=== PATIENT | female | born 1950 | race Caucasian/White ===

== ENCOUNTER → 2023-08-06 13:28 | Outpatient (REF) | payer OTHER, SELFPAY | LOC: RAD 13:28 | PROVIDERS: ATTENDING PHYSICIAN Specialist; FAMILY PHYSICIAN Family Medicine | DX: N18.32 Chronic kidney disease, stage 3b (principal) | CPT/HCPCS: 76775 ==

== ENCOUNTER → 2023-08-21 16:30 | Outpatient (REF) | payer OTHER, SELFPAY | LOC: RAD 16:30 | PROVIDERS: ATTENDING PHYSICIAN Nurse Practitioner Family | DX: Z87.891 Personal history of nicotine dependence (principal) | CPT/HCPCS: 71271 ==

== ENCOUNTER → 2023-10-03 06:41 | Day surgery (SDC) | payer OTHER, SELFPAY | LOC: GI 06:41 | PROVIDERS: ATTENDING PHYSICIAN Internal Medicine Gastroenterology; FAMILY PHYSICIAN Family Medicine | DX: D12.2 Benign neoplasm of ascending colon (principal); D12.4 Benign neoplasm of descending colon; K63.5 Polyp of colon; K57.30 Diverticulosis of large intestine without perforation or abscess without bleeding; K62.1 Rectal polyp; K64.8 Other hemorrhoids; K64.4 Residual hemorrhoidal skin tags; R19.5 Other fecal abnormalities | CPT/HCPCS: 45385; 45380; 88305 ==

== ENCOUNTER 2024-07-31 17:23 | Inpatient (IN) | payer OTHER, SELFPAY ==
[2024-07-31] VITALS (21 sets, daily range): BP systolic 57–117; BP diastolic 37–64; BMI 23.9
[2024-07-31 13:54] LABS: Glucose - Point of Care 112 mg/dl (70-99)
[2024-07-31 14:24] LABS: % Eosinophils 0.3 % (0-6); % Immature Granulocytes 2.1 % (0-0.5); % Lymphocytes 10.2 % (20.5-51.1); % Monocytes 8.1 % (1.7-9.3); % Neutrophils 79.3 % (42.2-75.2); Absolute Immature Granulocytes 0.1 10^3/uL (0-0.05); Absolute Lymphocytes 0.4 10^3/uL (1.2-3.4); Absolute Monocytes 0.3 10^3/uL (0.1-0.6); Absolute Neutrophils 3.1 10^3/uL (1.4-6.5); Hematocrit 17.3 % (37.0-47.0); Hemoglobin 6.1 g/dL (12.0-16.0); Mean Corp Hgb Conc. 35.3 g/dL (33.0-37.0); Mean Corpuscular Hgb 29.9 pg (27.0-31.0); Mean Corpuscular Volume 84.8 fL (81.0-99.0); Nucleated Red Blood Cells % 0.8 %; Red Blood Cell Count 2.04 10^6/uL (4.20-5.40); Red Cell Dist. Width 12.9 % (11.5-14.5); White Blood Cell Count 3.8 10^3/uL (4.8-10.8)
[2024-07-31 14:27] LABS: INR 1.08; PT 14.5 Sec (11.4-14.6)
--- NOTE | 2024-07-31 14:30 | EDRN ---
Patient is noted to be covered in bruises. Patient has bilateral lower arm bruising that is circumferential. Patient has skin tears all over as well. Patient not speaking at this time so unsure of what caused bruises. Patient also has some various
bruising on her back. There are 2 circular sores, one on each buttock.
Patient has some redness to her buttock as when she arrived she was covered in stool and urine.
Patient has various scratch benavides all over her too.
[2024-07-31 14:31] LABS: Urine Albumin 4+ (Neg - Trace); Urine Bilirubin Negative (Negative); Urine Character Slightly Cloudy (Clear); Urine Color Amber; Urine Glucose Negative (Negative); Urine Ketone Negative (Negative); Urine Leukocyte 2+ (Negative); Urine Nitrite Positive (Negative); Urine Occult Blood 4+ (Negative); Urine Urobilinogen 1+ (Neg - 1+)
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
[2024-07-31 14:32] LABS: Mean Platelet Volume 10.4 fL (7.4-10.4); Platelet Count 70 10^3/uL (130-400)
[2024-07-31 14:38] LABS: COVID-19 Antigen Negative (Negative)
[2024-07-31 14:39] LABS: Lactic Acid 1.2 mmol/L (0.7-2.0)
[2024-07-31 14:42] LABS: ALT (SGPT) 25 U/L (0-35); AST (SGOT) 72 U/L (14-36); Albumin 3.6 g/dl (3.5-5.0); Alkaline Phosphatase 68 U/L (38-126); Blood Urea Nitrogen 87 mg/dl (7-17); Carbon Dioxide 9 mmol/L (22-30); Chloride 85 mmol/L (98-107); Creatine Phosphokinase 744 U/L (30-135); Glucose 141 mg/dl (70-99); Potassium 4.8 mmol/L (3.5-5.1); Sodium 113 mmol/L (135-145); Total Bilirubin 0.5 mg/dl (0.2-1.3); Total Protein 6.2 g/dl (6.3-8.2); eGFR 8.09
[2024-07-31 14:50] LABS: Urine Red Blood Cell 90-100 /HPF (0-2); Urine Squamous Cell 26-30 /LPF (Few); Urine White Cell 80-90 /HPF (0-5)
[2024-07-31 14:51] LABS: Urine Amorphous Seen; Urine Bacteria Many (Negative)
[2024-07-31] MEDS: MAXIPIME 2000 MG IV (15:24)
--- NOTE | 2024-07-31 15:48 | HPS.HSE ---
Family Physician
-
Family Physician: Rubén Vera MD
Chief Complaint
-
adult failure to thrive
History of Present Illness
Patient is a 74-year-old female with past medical history significant for HFpEF, COPD, CKD IV, chronic anemia and depression who presented to [facility] ED for evaluation of adult failure to thrive. Patient arrived to ED via EMS s/p call
from patient . It was reported that patient has not gotten out of bed in months and over past 48-hours she has not been communicating. He reported that 1 year ago patient diagnoses with Stage IV CKD and refused HD and has been declining ever
since. He reports that she is mainly in bed on the main level, where as he sleeps upstairs. She is unable to ambulate up the steps r/t weakness and has been down stairs ever since. He states she has had decreased PO intake and has been
noncommunicative for the past 2 days. He goes in room to leave food and medications. He mentioned he noticed dinner he gave her last night is still sitting on patient bed.
Medical History
Past Medical History
Past Medical History: Reports Other
Additional Past Medical History:
HFpEF
COPD
CKD IV
chronic anemia
depression
Past Surgical History: Reports Other
Additional Past Surgical History:
Sinus surgery
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
Social History
Tobacco: Former Smoker (50 pack year history )
Living: With Family
Family History
Family History: Unable to Obtain
Allergies / Home Medications
Allergies reflects when Allergies were last updated in [employer].
Home Medications with original date entered in [employer]
Allergy/Medication List:
Allergies
Allergy/AdvReac Type Severity Reaction Status Date / Time
prednisone Allergy Unknown Verified 07/31/24 13:35
Home Medications
albuterol sulfate 90 mcg/actuation aerosol inhaler (Ventolin HFA) 2 puff inhalation R Q4HPRN PRN sob 11/24/17
escitalopram oxalate 10 mg tablet (Lexapro) 10 mg PO DAILY 07/31/24
sennosides 8.6 mg tablet (senna) 8.6 mg PO HSPRN PRN constipation 07/31/24
sodium bicarbonate 650 mg tablet 650 mg PO DAILY 07/31/24
trazodone 100 mg tablet 100 mg PO HS 07/31/24
Review of Systems
-
Unable to obtain full review of systems at this time due to: Patient Non-verbal
Physical Exam
Vital Signs
Vital Signs
Temp Pulse Resp BP Pulse Ox
91.8 F L 63 24 101/57 96
07/31/24 13:35 07/31/24 15:00 07/31/24 15:00 07/31/24 14:21 07/31/24 15:00
Physical Exam
General: Well Developed and Poor Appetite
HEENT: NormoCephalic, Atraumatic, Nose Appears Normal and Ears Appear Normal
Respiratory: Rhonchi and Non Labored Respirations
Cardiac: S1/S2 and Regular Rhythm; No Murmur, Rub or Gallop
GI: Soft, Non Tender, Non Distended and Normal Bowel Sounds; No Organomegaly
Rectal: Deferred by Provider
Genito-urinary: Deferred by me
Musculoskeletal: No Clubbing, No Cyanosis, Edema, Left Lower Extremity and Edema, Right Lower Extremity
Skin: IV/Catheter Site and Other (bruising noted to BLUE, scattered on back and shoulders ); No Rash
Neuro: Other (unable to assess, patient withdrawn from assessment attempts )
Laboratory Results
-
07/31/24 13:55
07/31/24 13:55
Laboratory Results
PT 14.5 Sec (11.4-14.6) 07/31/24 13:55
INR 1.08 07/31/24 13:55
Lactic Acid 1.2 mmol/L (0.7-2.0) 07/31/24 13:55
Total Bilirubin 0.5 mg/dl (0.2-1.3) 07/31/24 13:55
AST 72 U/L (14-36) H 07/31/24 13:55
ALT 25 U/L (0-35) 07/31/24 13:55
Alkaline Phosphatase 68 U/L (38-126) 07/31/24 13:55
Data Reviewed
-
Medical Tests (Nuc Med, Echo, EKG etc): Report Reviewed by me (EKG: ACCELERATED JUNCTIONAL RHYTHM VERSUS SINUS RHYTHM WITH POOR BASELINE)
Lab Data: Labs Reviewed by me (hgb 6.1, hct 17.3, plt 70, Na+ 113, HCO3 9, BUN 87, Creat 5.3, CK 744)
Impression/Plan
-
IMPRESSION/PLAN:
#severe acute kidney injury
#CKD IV
patient known to Dr. Boss and has adamantly refused HD
BUN 87, creat 5.3
- Admit to ICU
- Consult Nephrology
- bicarb gtt
- BMP q4
#metabolic acidosis
HCO3 9
- bicarb gtt
- q4 BMPs
#acute hyponatremia
Na+ 113
- Consult nephrology
- q4 BMP
- check urine sodium and creatine
#sepsis 2/2 urinary tract infection
UA: indicative of UTI
Urine Cx: pending
- IV ceftriaxone
- supportive care
#pancytopenia
#chronic anemia
hgb 6.1, hct 17.3, plt 70
blood consent scanned into chart
- transfuse 1 unit PRBCs
- monitor H/H
- check B12, folate and iron studies
- Consult heme/Onc
#hypothermia
- ye hugger
#HFpEF
ECHO (05/26/2021): 1. Normal left ventricular size and function, ejection fraction 60-65%
2. Trace mitral vegetation with normal left atrium
3. Normal aortic valve
4. Normal right heart with pulmonary artery systolic pressure 35 mmHg
- daily weights
#COPD
- continue PRN albuterol HFA
#depression
- continue escitalopram
Code status: DNR
DVT prophylaxis: SCDs
--- NOTE | 2024-07-31 16:10 | W.CON.NEPH ---
Consultation
-
Date/Time Consultation Requested: 07/31/24 330 pm
Date/Time Consultation Performed: 07/31/24 330pm
Requesting Provider: Dr. Sena
Performing Provider: Dr. Robins
Reason for Consultation: YUNG/Hyponatremia/Gapped metabollic acidosis
Medical History
-
Chief Complaint: YUNG/Hyponatremia/Gapped Metabolic Acidosis
History of Present Illness:
The patient is a 74-year-old female with a past medical history of metabolic acidosis maintained on sodium bicarbonate. She has a history of chronic kidney disease stage IV as noted by a creatinine of 3.4 in July 28, 2024. She had been seen by our
practice in 2017 in the hospital for an acute kidney injury in the setting of sepsis. She is followed by Dr. Boss of our nephrology practice and was last seen by him in May. During that last visit the patient had once again adamantly declared
that she would never except dialysis and no preparations have been made . I also know as per review of Dr. Boss's note that at that time her salt tablets and Lasix was discontinued . She is now maintained chronically on Lexapro for depression.She
presented to the emergency department for concern of failure to thrive. Medics called by patient's who notes that patient has not been getting out of bed for several months. On arrival to the hospital, patient is not speaking, malodorous,
covered in urine and feces. Patient unable to comply with any questioning. On 's arrival, he notes that she has been laying in the same bed for several months and he tries to clean her and leaves her medications on the bed for her. In
the past 2 days she has had decreased communication. Patient arrives with some scattered bruising to her back, and denies any recent fall or trauma. On arrival to the hospital she was profoundly hyponatremic with a serum sodium of 113 with
an associated metabolic acidosis with serum bicarbonate level of 9 and an acute renal failure with a creatinine of 5.3 with BUN of 87. Nephrology was then asked to see this critically ill patient
Past Medical History
CKD 4 (3.3 06/21)
Chronic metabolic acidosis
Depression
COPD
Prior history of congestive heart failure with preserved EF
Left knee replacement
History of Hyponatremia
Social History
Tobacco: Non-Smoker
Alcohol: None
Personal:
Living: With Family
Family History
Family History: Not Pertinent
Allergies / Home Medications
Allergy/AdvReac Type Severity Reaction Status Date / Time
prednisone Allergy Unknown Verified 07/31/24 13:35
�Medication �Instructions �Recorded �Confirmed �Type
albuterol sulfate 90 mcg/actuation 2 puff inhalation R Q4HPRN PRN sob 11/24/17 07/31/24 History
aerosol inhaler (Ventolin HFA)
escitalopram oxalate 10 mg tablet 10 mg PO DAILY 07/31/24 07/31/24 History
(Lexapro)
sennosides 8.6 mg tablet (senna) 8.6 mg PO HSPRN PRN constipation 07/31/24 07/31/24 History
sodium bicarbonate 650 mg tablet 650 mg PO DAILY 07/31/24 07/31/24 History
trazodone 100 mg tablet 100 mg PO HS 07/31/24 07/31/24 History
Review of Systems
-
Unable to obtain full review of systems at this time due to: Acuity
All other systems: Negative unless noted
Physical Exam
Vital Signs
Vital Signs
Temp Pulse Resp BP Pulse Ox
93.1 F L 63 24 101/57 96
07/31/24 16:04 07/31/24 15:00 07/31/24 15:00 07/31/24 14:21 07/31/24 15:00
Lab Results
07/31/24 13:55
07/31/24 13:55
WBC 3.8 10^3/uL (4.8-10.8) L 07/31/24 13:55
RBC 2.04 10^6/uL (4.20-5.40) L 07/31/24 13:55
Hgb 6.1 g/dL (12.0-16.0) L* 07/31/24 13:55
Hct 17.3 % (37.0-47.0) L* 07/31/24 13:55
Plt Count 70 10^3/uL (130-400) L 07/31/24 13:55
Sodium 113 mmol/L (135-145) L* 07/31/24 13:55
Potassium 4.8 mmol/L (3.5-5.1) 07/31/24 13:55
Chloride 85 mmol/L (98-107) L 07/31/24 13:55
Carbon Dioxide 9 mmol/L (22-30) L* 07/31/24 13:55
BUN 87 mg/dl (7-17) H 07/31/24 13:55
Creatinine 5.3 mg/dL (0.6-1.0) H* 07/31/24 13:55
eGFR 8.09 07/31/24 13:55
Glucose 141 mg/dl (70-99) H 07/31/24 13:55
Calcium 8.0 mg/dl (8.4-10.2) L 07/31/24 13:55
Albumin 3.6 g/dl (3.5-5.0) 07/31/24 13:55
Physical Exam
General: Chronically ill-appearing cachectic withdrawn nonverbal
HEENT: PERRLA EOMI conjunctive pale, anicteric sclera,facial Symmetry, Neck Supple, Neck: Trachea Midline, No JVD and No Thyromegaly, no Bruits
Respiratory: Clear to auscultation bilaterally with normal lung exersion
Cardiac: S1/S2 and Regular Rate/Rhythm
Breast: Deferred by me
Abdomen: Soft, Nontender, Nondistended, decreased Bowel Sounds and No Hepatosplenomegaly
Rectal: Deferred by Provider
Genito-urinary: No Costovertebral Tenderness
Extremities: No Clubbing, No Cyanosis and No Edema
Skin: No Rash or open lesions
Neuro: Unobtainable as patient is uncooperative with exam but appears to move all 4 extremities
Hematologic/Lymphatic: No Cervical Lymphadenopathy, No Submandibular Lymphadenopathy and No Supraclavicular Lymphadenopathy
Psych: Unobtainable as patient is nonverbal and withdrawn
Vascular: plus 1 pedal and radial pulses
Data Reviewed
-
Medical Tests (Nuc Med, Echo etc): Other (EKG report reviewed accelerated junctional rhythm at 69 bpm)
Labs: Labs Reviewed by me (BMP CBC, urinalysis)
Old Records: Reviewed (Reviewed previous creatinine of 1.8 and sodium of 134 from 07/27/21, creatinine 3.11 08/30/23)
Assessment/Plan
-
Impression:
Presents with change of mental status and Failure to thrive
YUNG (5.3)
CKD stage IV (creatinine 3.31 May 2024)
Hyponatremia (113)
Anion gap metabolic acidosis (19)
Anemia
COPD
History of congestive heart failure with preserved EF
Plan:
YUNG:
-Likely a function of volume depletion given failure to thrive in setting of advanced kidney disease stage IV, or progressin of underlying disease
-Would check kidney and bladder ultrasound in am
-place navarro
-hold SSRI, check urine sodium and urine creatinine for fractional excretion of sodium
-Would also check CPK to evaluate for possible rhabdo given bedbound status
-would administer 150 mill equivalents of sodium bicarb per liter of sterile or D5W at 100 cc an hour for profound metabolic acidosis
-We will have to closely monitor patient's serum sodium level as it is precipitously low at 113, however I think the treatment of the acidosis is paramount
-Electrolytes will be obtained every 4 hours to avoid any gross fluctuations of serum sodium level
-Of note the patient has vehemently declined dialysis with proper documentation in the outpatient records therefore dialysis will not be offered and I suggest patient should be DNR and possibly even evaluated for hospice care
-This patient is critically ill with profound hyponatremia metabolic acidosis and acute renal failure in the setting of mental status change
-45 minutes of critical care time spent with patient
[2024-07-31] MEDS: SODIUM CHLORIDE 3% 250 IV (16:32)
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
[2024-07-31] MEDS: SODIUM BICARBONATE 1150 MEQ IV (17:39)
--- NOTE | 2024-07-31 17:40 | EDRN ---
Patient is admitted to the ICU , however no beds available at this time.
Per TT, Dr. Streeter, Hypertonic solution is to be held at this time in favor of IV fluids. However no IV fluids were ordered. Dr. Streeter placed order for 500ML BOLUS. Dr was made aware that patient's BP is 73/40 and declining.
Patient currently has sodium bicarb infusing along with NSS BOLUS.
1 unit PRBC started
Patient continues on ye hugger with core temp of 34
[2024-07-31] MEDS: NSS 500 IV (17:54)
[2024-07-31] MEDS: SODIUM BICARBONATE 50 MEQ IV (18:10)
--- NOTE | 2024-07-31 22:09 | PTCARENOTE ---
Received pt from ED RN. Pt pulled over from the stretcher to our bed. Pt is not speaking, nonverbal, moaning, drowsy, withdrawn. NSR on the monitor. Received pt on RA, O2 sat 88%, placed on 2L NC O2 sat 97%, lungs diminished. Incont of stool. Schaefer
placed in ED, urine is bloody. Various bruising, scratches and skin tears on pt (see wound worklist). BiCarb gtt @ 100 ml/hr. CHG bath and mouth care provided. Safe environment maintained.
[2024-07-31 22:27] LABS: Glucose - Point of Care 72 mg/dl (70-99)
[2024-07-31] MEDS: STERILE WATER FOR INJECTION 10 ML IV (22:37)
[2024-07-31] MEDS: ROCEPHIN 1000 MG IV (22:38)
[2024-08-01] VITALS (20 sets, daily range): BP systolic 95–137; BP diastolic 50–96; BMI 24.2
[2024-08-01 00:38] LABS: INR 1.04; PT 14.1 Sec (11.4-14.6)
[2024-08-01 00:39] LABS: APTT 41.4 Sec (23.4-35.0)
[2024-08-01 00:47] LABS: % Basophils 0.2 % (0-2); % Eosinophils 0.2 % (0-6); % Immature Granulocytes 1.6 % (0-0.5); % Lymphocytes 6.8 % (20.5-51.1); % Monocytes 12.5 % (1.7-9.3); % Neutrophils 78.7 % (42.2-75.2); Absolute Immature Granulocytes 0.1 10^3/uL (0-0.05); Absolute Lymphocytes 0.3 10^3/uL (1.2-3.4); Absolute Monocytes 0.6 10^3/uL (0.1-0.6); Absolute Neutrophils 3.5 10^3/uL (1.4-6.5); Hematocrit 17.3 % (37.0-47.0); Hemoglobin 6.2 g/dL (12.0-16.0); Mean Corp Hgb Conc. 35.8 g/dL (33.0-37.0); Mean Corpuscular Hgb 29.4 pg (27.0-31.0); Nucleated Red Blood Cells % 0.7 %; Platelet Count 61 10^3/uL (130-400); Red Blood Cell Count 2.11 10^6/uL (4.20-5.40); Red Cell Dist. Width 12.4 % (11.5-14.5); White Blood Cell Count 4.4 10^3/uL (4.8-10.8)
[2024-08-01 01:21] LABS: ALT (SGPT) 31 U/L (0-35); AST (SGOT) 120 U/L (14-36); Albumin 3.2 g/dl (3.5-5.0); Alkaline Phosphatase 75 U/L (38-126); Blood Urea Nitrogen 91 mg/dl (7-17); Calcium 7.2 mg/dl (8.4-10.2); Carbon Dioxide 12 mmol/L (22-30); Chloride 86 mmol/L (98-107); Estimated Creatinine Clearance 9 ml/min; Glucose 62 mg/dl (70-99); Magnesium 1.8 mg/dl (1.6-2.3); Phosphorus 5.8 mg/dl (2.5-4.5); Potassium 4.8 mmol/L (3.5-5.1); Sodium 115 mmol/L (135-145); Total Bilirubin 0.8 mg/dl (0.2-1.3); Total Protein 5.6 g/dl (6.3-8.2); eGFR 8.09
--- NOTE | 2024-08-01 01:23 | PTCARENOTE ---
Systems reviewed. ICU JANITORIAL SUPERVISOR Ambrose notified for hgb 6.2, 1 unit PRBCs ordered.
--- NOTE | 2024-08-01 02:15 | PTCARENOTE ---
ICU SETTER UP Ambrose notified about decreased UO. 1 unit PRBCs hanging, 15 min VS check complete, VSS.
[2024-08-01] MEDS: SODIUM BICARBONATE 1150 MEQ IV (04:42)
--- NOTE | 2024-08-01 04:51 | PTCARENOTE ---
Systems reviewed, no new changes in assessment. 1 unit PRBCs complete. 0400 AM labs done. Safe environment maintained.
[2024-08-01 05:09] LABS: Blood Urea Nitrogen 93 mg/dl (7-17); Calcium 7.3 mg/dl (8.4-10.2); Carbon Dioxide 16 mmol/L (22-30); Chloride 87 mmol/L (98-107); Estimated Creatinine Clearance 9 ml/min; Glucose 78 mg/dl (70-99); Iron 171 ug/dl (37-170); Percent Saturation 96 % (20-50); Potassium 5.1 mmol/L (3.5-5.1); Sodium 117 mmol/L (135-145); Total Iron Binding Capacity 178 ug/dl (265-497); eGFR 8.28
[2024-08-01 06:05] LABS: Folate 14.9 ng/ml (2.76-20); Vitamin B12 > 1000 pg/ml (239-931)
[2024-08-01 07:24] LABS: Hematocrit 19.1 % (37.0-47.0); Hemoglobin 7.1 g/dL (12.0-16.0); Mean Corp Hgb Conc. 37.2 g/dL (33.0-37.0); Mean Corpuscular Volume 80.6 fL (81.0-99.0); Platelet Count 66 10^3/uL (130-400); Red Blood Cell Count 2.37 10^6/uL (4.20-5.40); Red Cell Dist. Width 12.3 % (11.5-14.5); White Blood Cell Count 4.8 10^3/uL (4.8-10.8)
--- NOTE | 2024-08-01 08:30 | PTCARENOTE ---
Rec'd care of patient at 0700. Patient lethargic. Pupils equal and reactive; +3mm. Nonverbal. MAEx4. Follows simple commands. NSR on tele. +1 edema in b/l LE. Palpable pulses. Pulse ox 95-98% on 2L nc. Lung sounds diminished throughout. Harsh, moist
cough present. Non-productive. +BS. No bm. Schaefer in place for critical I/O. Blood tinged. Scattered bruising/scratches throughout body. Foams intact. Calazime applied to MASD. Bicarb gtt infusing through peripheral INT. Repeat BMP sent. Full
assessment and care as charted on worklist.
[2024-08-01 08:34] LABS: Blood Urea Nitrogen 92 mg/dl (7-17); Calcium 7.1 mg/dl (8.4-10.2); Carbon Dioxide 18 mmol/L (22-30); Chloride 85 mmol/L (98-107); Estimated Creatinine Clearance 9 ml/min; Glucose 87 mg/dl (70-99); LDH 281 U/L (120-246); Potassium 4.9 mmol/L (3.5-5.1); Sodium 117 mmol/L (135-145); eGFR 7.74
--- NOTE | 2024-08-01 08:41 | CON.ONC ---
Documented by User: CLEOPATRA Carr 08/01/24 12:52
Impression
Impression
pancytopenia on admission with resolution of leukopenia today. No role for iron repletion with ferritin >100. No B12 or folate deficiency. No evidence of hemolysis based on retic, LDH, and LFTs.
advanced CKD, stage IV
hyponatremia
sepsis secondary to UTI
HFpEF
COPD
hypothermia
Plan
Plan
check heme stool
check fibrinogen
Thrombocytopenia may be consumptive in the setting of infection. Monitor for improvement with treatment of UTI
Component of anemia secondary to AOCKD.
No role for iron repletion with ferritin >100.
transfuse Hgb <7 or as needed for sxs anemia
transfuse platelets <10 or <50 if concern for bleeding
caution antiplatelet, nsaids, anticoagulation for platelet count <50,000
abx for suspcted UTI per primary service
follow up nephrology consult
Patient History
History of Present Illness
74yo F presented with failure to thrive. She was brought in by EMS. Her reported that she has not been out of bed in 'months' and stopped communicating and eating over the past 48 hours which prompted him to call EMS. She has been declining
HD for advanced CKD. Initial evaluation was notable for Temp 91.8F, WBC 3.8, ANC 3100, Hgb 6.1, Hct 17.3, platelet count 70,000, PT 14.5, INR 1.08, PTT 41.4, Na 113, BUN 87, creatinine 5.3, calcium 8, AST 72 otherwise normal LFTs. UA showed pyuria.
CT head was negative for acute abnormalities. CXR was negative for cardiopulmonary disease. She has been admitted to the ICU, transfused with 2U PRBC, started on 3% saline and IV abx.
Hematology was consulted regarding pancytopenia. Pt is a poor historian. History obtained via chart review.
Past-Medical/Surgical History
PMH HFpEF, COPD, CKD IV, chronic anemia and depression
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
Social former smoker, denies ETOH or recreational drugs. Lives with . retired
Family unknown, pt unable to provide
Patient Medication
�Medication �Instructions �Recorded �Confirmed �Last Taken �Type
albuterol sulfate 90 mcg/actuation 2 puff inhalation R Q4HPRN PRN sob 11/24/17 07/31/24 Unknown History
aerosol inhaler (Ventolin HFA)
escitalopram oxalate 10 mg tablet 10 mg PO DAILY 07/31/24 07/31/24 Unknown History
(Lexapro)
sennosides 8.6 mg tablet (senna) 8.6 mg PO HSPRN PRN constipation 07/31/24 07/31/24 Unknown History
sodium bicarbonate 650 mg tablet 650 mg PO DAILY 07/31/24 07/31/24 Unknown History
trazodone 100 mg tablet 100 mg PO HS 07/31/24 07/31/24 Unknown History
Active Medications
Generic Name Dose Route Start Last Admin
Trade Name Freq PRN Reason Stop Dose Admin
Ceftriaxone Sodium 1,000 mg 07/31/24 22:00 07/31/24 22:38
Ceftriaxone 1000 Mg / 10 Ml Vial IV 1,000 mg
Q24H ESTER Administration
Sodium Bicarbonate 150 meq/ 1,150 mls @ 100 mls/hr 07/31/24 16:30 08/01/24 04:42
Dextrose IV 08/01/24 16:34 1,150 mls
.[id number] ESTER Administration
Sodium Chloride 0 flush 07/31/24 18:00
Sodium Chloride 0.9% (Flush) Syringe IV 08/28/24 17:59
PER PROTOCOL ESTER
Sterile Water 10 ml 07/31/24 22:00 07/31/24 22:37
Sterile Water For Injection 10 Ml Vial IV 08/28/24 21:59 10 ml
Q24H ESTER Administration
Review of Systems
-
Unable to obtain full review of systems at this time due to: Other (cognitive status)
Physical Exam
-
General: No Apparent Distress
HEENT: Negative Jaundice or Moist Mucous Membranes (dry)
Cardiology: Normal Sinus Rhythm
Pulmonary: Other (decreased)
GI: Soft
Extremities: Pulses Present; Negative Edema
Skin: Warm
Psych: Calm
Labs
Lab Results
WBC 4.8 10^3/uL (4.8-10.8) 08/01/24 06:
RBC 2.37 10^6/uL (4.20-5.40) L 08/01/24:
Hgb 7.1 g/dL (12.0-16.0) L 08/01/24:
Hct 19.1 % (37.0-47.0) L* 08/01/24:
MCV 80.6 fL (81.0-99.0) L 08/01/24:
MCH 30.0 pg (27.0-31.0) 08/01/24 06:
MCHC 37.2 g/dL (33.0-37.0) H 08/01/24 06:29
RDW 12.3 % (11.5-14.5) 08/01/24 06:
Plt Count 66 10^3/uL (130-400) L 08/01/24 06:
MPV 10.0 fL (7.4-10.4) 08/01/24 06:
Abs Immat Gran (auto) 0.1 10^3/uL (0-0.05) H 08/01/24 00:10
Absolute Neuts (auto) 3.5 10^3/uL (1.4-6.5) 08/01/24 00:10
Absolute Lymphs (auto) 0.3 10^3/uL (1.2-3.4) L 08/01/24 00:10
Absolute Monos (auto) 0.6 10^3/uL (0.1-0.6) 08/01/24 00:10
Absolute Eos (auto) 0.0 10^3/uL (0-0.7) 08/01/24 00:10
Absolute Basos (auto) 0.0 10^3/uL (0-0.2) 08/01/24 00:10
Immature Gran % 1.6 % (0-0.5) H 08/01/24 00:10
Neutrophils % 78.7 % (42.2-75.2) H 08/01/24 00:10
Lymphocytes % 6.8 % (20.5-51.1) L 08/01/24 00:10
Monocytes % 12.5 % (1.7-9.3) H 08/01/24 00:10
Eosinophils % 0.2 % (0-6) 08/01/24 00:10
Basophils % 0.2 % (0-2) 08/01/24 00:10
Creatinine 5.5 mg/dL (0.6-1.0) H* 08/01/24 08:06
Vital Signs
Vital Signs
Temp Pulse Resp BP Pulse Ox
99.9 F 62 21 115/62 98
08/01/24 07:53 08/01/24 08:00 08/01/24 08:00 08/01/24 08:00 08/01/24 08:00

Documented by User: Bolivar Oquendo MD 08/01/24 14:41
Plan
Plan
check heme stool
check fibrinogen
Thrombocytopenia may be consumptive in the setting of infection. Monitor for improvement with treatment of UTI
Component of anemia secondary to AOCKD.
No role for iron repletion with ferritin >100.
transfuse Hgb <7 or as needed for sxs anemia
transfuse platelets <10 or <50 if concern for bleeding
caution antiplatelet, nsaids, anticoagulation for platelet count <50,000
abx for suspcted UTI per primary service
follow up nephrology consult
Hematology Addendum:
Patient seen and evaluated - transitioning to hospice - will sign off
[2024-08-01 08:43] LABS: Urine Sodium 55 mmol/L (30-90)
--- NOTE | 2024-08-01 08:45 | W.PN.HOSP.TC ---
Today's Communication/Plan
-
see PN
Assessment / Plan
Assessment / Plan
70yo F with PMHX of CKD stage 4, amxiety brought by [facility] due to worsening respomsivemess for past few days. Patient reported to be with poor ambulatory capacity and for the past few days became mostly non-verbal. She was found in urine and feces
in her bed. Admitted with YUNG and UTI with hyponatremia and acidosis. PAtient known to nephrology and previously was adamantly refusing HD. ALso found pancytopenia, that required 1 unit PRBC on admission
A/P:
#UTI with acute septic and metabolic encephalopathy
Rocephin
CT abd
Follow Bcx Ucx
#YUNG on CKD stage 4 with metabolic acidosis
#Severe hyponatremia
Nephroilogy cosnult
Previously declined HD, so it will not be offered
Attempt with IVF and bicarb to improve. Target Ns improvement 6-8meq per 24h
Schaefer
FOllow BMP q4h
#mild CPKJ elevation
2/2 bedbound status
#AST elevation
isolated
follow LFT
check LDH, haptoglobin
#Poor ambulatory capacity
essentially bedbound for couple of previous months
Might be a candidate for hospice if will not respond to Abx and IVF
#Anxiety d/o
holding Lexapro 2/2 hyponatremia
#Pancytopenia
severe anemia - start deficiency w/u
Check FOBT
Hematology consult
s/p 1 unit PRBC on admission
DVT ppx on SCDs
DNR/DNI
I have spent at least 75min critical care time reviewing chart, test reuslts and providing direct patient care
Anticipated Discharge: > 48 hours
Subjective/Interval History
-
Date of Service: August 01, 2024
Objective Data
-
Labs:
Laboratory Results
08/01/24 08/01/24 08/01/24
00:10 04:18 06:29
WBC 4.4 L 4.8
Hgb 6.2 L* 7.1 L
Hct 17.3 L* 19.1 L*
Plt Count 61 L 66 L
PT 14.1
INR 1.04
APTT 41.4 H
Sodium 115 L* 117 L*
Potassium 4.8 5.1
Chloride 86 L 87 L
Carbon Dioxide 12 L* 16 L
BUN 91 H 93 H
Creatinine 5.3 H* 5.2 H*
Glucose 62 L 78
Calcium 7.2 L 7.3 L
Total Bilirubin 0.8
AST 120 H
ALT 31
Alkaline Phosphatase 75
08/01/24 08/01/24 08/01/24
08:06 12:00 16:00
WBC
Hgb
Hct
Plt Count
PT
INR
APTT
Sodium 117 L* Pending Pending
Potassium 4.9 Pending Pending
Chloride 85 L Pending Pending
Carbon Dioxide 18 L Pending Pending
BUN 92 H Pending Pending
Creatinine 5.5 H* Pending Pending
Glucose 87 Pending Pending
Calcium 7.1 L Pending Pending
Total Bilirubin
AST
ALT
Alkaline Phosphatase
08/01/24
20:00
WBC
Hgb
Hct
Plt Count
PT
INR
APTT
Sodium Pending
Potassium Pending
Chloride Pending
Carbon Dioxide Pending
BUN Pending
Creatinine Pending
Glucose Pending
Calcium Pending
Total Bilirubin
AST
ALT
Alkaline Phosphatase
Vital Signs:
Vital Signs
Temp Pulse Resp BP Pulse Ox
99.9 F 62 21 115/62 98
08/01/24 07:53 08/01/24 08:00 08/01/24 08:00 08/01/24 08:00 08/01/24 08:00
I&O
07/31/24 08/01/24 08/02/24
06:59 06:59 06:59
Intake Total 1550 / 1650 200 / 200
Output Total 125 / 135 20 / 20
Balance 1425 / 1515 180 / 180
Review of Systems
-
Unable to obtain full review of systems at this time due to: Acuity and Patient Non-verbal
Physical Exam
-
General: Appears Chronically Ill and Other (able to say 'Hi')
HEENT: Moist Mucous Membranes
Cardiac: Regular Rhythm
GI: Soft, Nontender and Nondistended
Musculoskeletal: No Clubbing, No Cyanosis and No Edema
Neuro: Other (lethargic)
Psych: Calm
--- NOTE | 2024-08-01 08:49 | CON.INTV ---
Consultation
Consultation Request
Date/Time Consultation Requested: 07/31/2024
Date/Time Consultation Performed: 08/01/2024
Requesting Provider: Maxine Pina
Performing Provider: Michelle Gallegos
Reason for Consultation: YUNG
Medical History
-
Chief Complaint: Failure to thrive
History of Present Illness:
Very pleasant 74-year-old female with complicated past medical history of heart failure with preserved ejection fraction, chronic kidney disease, COPD who presented to the hospital ED for failing to thrive. Patient was brought by EMS. Patient has
been bedridden lately with poor p.o. intake. Patient apparently is known to have worsening chronic kidney disease and has refused HD in the past. In the emergency room she was noted to be anemic with worsening renal function along with severe
hyponatremia. She was admitted to the ICU and metaphysician consultation was requested.
Past Medical History
Past Medical History: Reports Other
Additional Past Medical History:
HFpEF
COPD
CKD IV
chronic anemia
depression
Past Surgical History: Reports Other
Additional Past Surgical History:
Sinus surgery
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
Social History
Tobacco: Former Smoker (50 pack year history )
Living: With Family
Family History
Family History: Unable to Obtain
Allergies / Home Medications
Allergies
Allergy/AdvReac Type Severity Reaction Status Date / Time
prednisone Allergy Unknown Verified 07/31/24 13:35
Home Medications
�Medication �Instructions �Recorded �Confirmed �Last Taken �Type
albuterol sulfate 90 mcg/actuation 2 puff inhalation R Q4HPRN PRN sob 11/24/17 07/31/24 Unknown History
aerosol inhaler (Ventolin HFA)
escitalopram oxalate 10 mg tablet 10 mg PO DAILY 07/31/24 07/31/24 Unknown History
(Lexapro)
sennosides 8.6 mg tablet (senna) 8.6 mg PO HSPRN PRN constipation 07/31/24 07/31/24 Unknown History
sodium bicarbonate 650 mg tablet 650 mg PO DAILY 07/31/24 07/31/24 Unknown History
trazodone 100 mg tablet 100 mg PO HS 07/31/24 07/31/24 Unknown History
Review of Systems
-
Unable to Obtain full review of systems at this time due to: Other (Unable to obtain because of patient's mental status)
Vitals / Labs / Diagnostic Testing
Vital Signs
Temp Pulse Resp BP Pulse Ox
99.9 F 62 21 115/62 98
08/01/24 07:53 08/01/24 08:00 08/01/24 08:00 08/01/24 08:00 08/01/24 08:00
Lab Data
08/01/24 06:29
Laboratory Results
07/31/24 08/01/24
13:55 00:10
PT 14.5 14.1
INR 1.08 1.04
APTT 41.4 H
Microbiology
07/31/24 13:55 Nasal Swab Influenza Types A & B (JONAH) - Final
Negative for Influenza A & B, NAAT
Negative results must be combined with clinical observations
and patient history.
Nucleic Acid Amplification test (NAAT)performed on the
[employer] NOW platform.
Diagnostic Testing:
Physical Exam
-
HEENT: Normocephalic
Cardiovascular: Regular Rhythm
Respiratory: Clear
GI: Soft
Skin: Warm
General: Comfortable
Assessment
-
#1. Failure to thrive in adult. Patient has complex medical history and is currently very deconditioned. She has worsening renal failure with severe hyponatremia and also concern for sepsis with suspected UTI. Patient is quite acidotic with a
bicarb level of 9. On discussion with the primary hospitalist team, patient's family, goals of care appeared to be clear. Considering multiorgan dysfunction and patient who has very poor functional status, hospice care seems to be appropriate neck
step.
-Hospice consult
Other medical comorbidities:
-Acute kidney injury with underlying chronic kidney disease stage IV
-Acute on suspect chronic hyponatremia
-Sepsis with suspected underlying UTI
-Metabolic acidosis, likely related to acute kidney injury
-Anemia, could be related to underlying critical illness as well as chronic renal disease
Crusher Machine Operator service is available as needed but at present comfort oriented care appears to align with patient's goals.
-Crusher Machine Operator service will sign off please consult as needed
--- NOTE | 2024-08-01 08:51 | W.PN.UPDATE ---
Update Note
Progress Note Update
As per detailed conversation with - his did not want to use HD and wished just to be comfortable without any significant interventions provided. We have discussed comfort car eand hospice approach - is ready to initiate hospice
and stop all active medications and treatment for the patient, but will want to re-discuss upon arrival to the hospital. He verbalized understanding that this will mean mo tests, blood work, Abx or IVF and that we will manage pain, dyspnea,
agitation with morphine, ativan only.
Will cancel CT
Await to come to discuss
Hocpice consult by CM
--- NOTE | 2024-08-01 09:47 | HOSPNOTE ---
Addendum entered by Autumn Mendoza RN 08/01/24 11:24:
Spoke to the spouse, he will be there between 2-3 and is agreeable to speak to hospice at that time. CM, attending and primary nurse aware. More information to follow.
Original Note:
Hospice referral received. Called spouse and left VM. He may already be on his way to the hospital. Attending updated. CM and primary nurse aware and asked them to let us know when spouse arrives so we can discuss inpatient hospice with him, more
information to follow.
--- NOTE | 2024-08-01 11:37 | CM ---
Addendum entered by Onur Seth 08/01/24 14:51:
Pt is admitted for inpatient hospice with hospice.
Original Note:
CM following re: discharge planning.
Discussed in rounds, reviewed pt's chart, met with pt and pt's mother in law at bedside.
Per mother in law, pt lives with 2SH, 2 steps to enter, has no children and has been helping the pt at home. Pt uses a RW, known to [facility].
Hospice consult noted. Pt referred to hospice and pt's is coming between 2 and 3 p.m to sign pt in on hospice care. Per [facility] hospice liaison, pt will be accepted for inpatient hospice with hospice [facility].
D/C plan: inpatient hospice with hospice [facility].
CM is available for emotional support.
--- NOTE | 2024-08-01 12:19 | W.PN.NEPH.PH ---
Today's Communication / Plan
-
hospice eval
Assessment/Plan
-
Impression:
Presents with change of mental status and Failure to thrive
YUNG (5.3)
CKD stage IV (creatinine 3.31 May 2024)
Hyponatremia (113)
Anion gap metabolic acidosis (19)
Anemia
COPD
History of congestive heart failure with preserved EF
Plan:
YUNG:
-Likely a function of volume depletion given failure to thrive in setting of advanced kidney disease stage IV, or progressing of underlying disease
met acidosis is better
slow to improve hyponatremia on bicarb gtt
noted that family leaning towards hospice
navarro for comfort only
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
awaiting to come in
-
-
Date of Service: August 01, 2024
CC / HPI / ROS
-
Chief Complaint:
YUNG, CKD. hyponatremia, met acidosis
History of Present Illness:
sodium up at 117, met acidosis is better at 18
cr up at 5.5, oliguric
Bp stable
Review of Systems:
unable to obtain, only opens eyes
no fever
oliguric with navarro
Labs
-
Labs:
WBC 4.8 10^3/uL (4.8-10.8) 08/01/24 06:29
RBC 2.37 10^6/uL (4.20-5.40) L 08/01/24 06:29
Hgb 7.1 g/dL (12.0-16.0) L 08/01/24 06:29
Hct 19.1 % (37.0-47.0) L* 08/01/24 06:29
Plt Count 66 10^3/uL (130-400) L 08/01/24 06:29
eGFR 7.74 08/01/24 08:06
Phosphorus 5.8 mg/dl (2.5-4.5) H 08/01/24 00:10
Albumin 3.2 g/dl (3.5-5.0) L 08/01/24 00:10
Physical Exam
-
Vital Signs:
Vital Signs
Temp Pulse Resp BP Pulse Ox
99.5 F 71 20 130/71 96
08/01/24 12:06 08/01/24 11:00 08/01/24 11:00 08/01/24 11:00 08/01/24 11:00
Cardiovascular:: Regular rate and rhythm
Lung Excursion:: Abnormal (decreased, )
Abdomen:: Nontender and Soft
Extremity Edema:: None: Bilateral:
Navarro Catheter: Yes
[2024-08-01 13:12] LABS: Fibrinogen 226 MG/DL (199-459)
--- NOTE | 2024-08-01 13:18 | PTCARENOTE ---
No major changes in assessment. Urine output now yellow. No other changes. VSS. Awaiting patient's to arrive.
--- NOTE | 2024-08-01 13:40 | PTCARENOTE ---
Patient's at bedside. national dedicated truck driver notified.
[2024-08-01 14:03] LABS: Blood Urea Nitrogen 92 mg/dl (7-17); Calcium 7.1 mg/dl (8.4-10.2); Carbon Dioxide 20 mmol/L (22-30); Chloride 84 mmol/L (98-107); Estimated Creatinine Clearance 9 ml/min; Glucose 85 mg/dl (70-99); Potassium 4.7 mmol/L (3.5-5.1); Sodium 117 mmol/L (135-145); eGFR 7.74
--- NOTE | 2024-08-01 14:21 | W.PN.UPDATE ---
Update Note
Progress Note Update
Confirmed bedside with family to initiate comfort care. bench assembler electrical in room
--- NOTE | 2024-08-01 14:33 | PTCARENOTE ---
Patient transitioned to comfort care. Spoke with hospice volunteer. Patient resting comfortably at current time.
--- NOTE | 2024-08-01 14:42 | W.DCSUMMARY ---
Discharge Summary
Discharge Data
Date of Admission: 07/31/24
Date of Discharge: 08/01/24
-
Pending Results: No
Hospital Course
70yo F with PMHX of CKD stage 4, amxiety brought by [facility] due to worsening responsiveness for past few days. Patient reported to be with poor ambulatory capacity and for the past few days became mostly non-verbal. She was found in urine and feces
in her bed. Admitted with YUNG and UTI with hyponatremia and acidosis. Patient known to nephrology and previously was adamantly refusing HD. ALso found pancytopenia, that required 1 unit PRBC on admission
As per detailed conversation with - his did not want to use HD and wished just to be comfortable without any significant interventions provided. We have discussed comfort car eand hospice approach - is ready to initiate hospice
and stop all active medications and treatment for the patient, but will want to re-discuss upon arrival to the hospital. He verbalized understanding that this will mean mo tests, blood work, Abx or IVF and that we will manage pain, dyspnea,
agitation with morphine, ativan only. Confirmed bedside with family to initiate comfort care since patient priority was quality of life that steadily deteriorated over past months. Also accepted to inpatient hospice
I have spent at least 36min reviewing chart, test results and providing direct patient care
Patient was managed for:
#UTI with acute septic and metabolic encephalopathy
#YUNG on CKD stage 4 with metabolic acidosis
#Severe hyponatremia
#mild CPKJ elevation
#AST elevation
#Poor ambulatory capacity
#Anxiety d/o
#Pancytopenia
Discharge Plan
-
Referrals:
Rubén Vera MD [Family Provider] -
Prescriptions:
No Action
albuterol sulfate [Ventolin HFA] 1 PUFF HFA aerosol inhaler
2 puff inhalation R Q4HPRN PRN (Reason: sob)
sennosides [senna] 8.6 mg Tablet
8.6 mg PO HSPRN PRN (Reason: constipation)
trazodone 100 mg Tablet
100 mg PO HS
sodium bicarbonate 650 mg Tablet
650 mg PO DAILY
escitalopram oxalate [Lexapro] 10 mg Tablet
10 mg PO DAILY
Discharge Date and Time
Print Language: MAURITIAN
[2024-08-03 09:50] LABS: Haptoglobin 80 mg/dL (30-200)
== END 2024-08-01 14:47 | disposition hospice, inpatient (51) | DRG 871 ==
LOC: ICU 17:23
PROVIDERS: Nurse Practitioner Family; Nurse Practitioner Primary Care; ADMITTING PHYSICIAN Hospitalist; ATTENDING PHYSICIAN Internal Medicine; CONSULT PHYSICIAN Internal Medicine; CONSULT PHYSICIAN Specialist; EMERGENCY PHYSICIAN Student in an Organized Health Care Education/Training Program; FAMILY PHYSICIAN Student in an Organized Health Care Education/Training Program; OTHER PHYSICIAN Internal Medicine Hematology & Oncology
PROC: 30233N1 Transfusion of Nonautologous Red Blood Cells into Peripheral Vein, Percutaneous Approach (ICD-10-PCS; 2024-07-31)
DX: A41.9 Sepsis, unspecified organism (principal); G93.41 Metabolic encephalopathy; I50.32 Chronic diastolic (congestive) heart failure; N18.4 Chronic kidney disease, stage 4 (severe); E87.1 Hypo-osmolality and hyponatremia; T76.91XA Unspecified adult maltreatment, suspected, initial encounter; E87.22 Chronic metabolic acidosis; N17.9 Acute kidney failure, unspecified; N39.0 Urinary tract infection, site not specified; D61.818 Other pancytopenia; Z51.5 Encounter for palliative care; D63.1 Anemia in chronic kidney disease; R62.7 Adult failure to thrive; J44.89 Other specified chronic obstructive pulmonary disease; F17.200 Nicotine dependence, unspecified, uncomplicated; E86.0 Dehydration; F32.A Depression, unspecified; E86.9 Volume depletion, unspecified; D72.819 Decreased white blood cell count, unspecified; R74.01 Elevation of levels of liver transaminase levels; R68.0 Hypothermia, not associated with low environmental temperature; F41.9 Anxiety disorder, unspecified; S30.0XXA Contusion of lower back and pelvis, initial encounter; X58.XXXA Exposure to other specified factors, initial encounter; Y93.9 Activity, unspecified; Y92.009 Unspecified place in unspecified non-institutional (private) residence as the place of occurrence of the external cause; Z96.641 Presence of right artificial hip joint; Z96.652 Presence of left artificial knee joint; Z66 Do not resuscitate; Z74.01 Bed confinement status; Z86.718 Personal history of other venous thrombosis and embolism; Z91.199 Patient's noncompliance with other medical treatment and regimen due to unspecified reason; Z88.8 Allergy status to other drugs, medicaments and biological substances; Z11.52 Encounter for screening for COVID-19
CPT/HCPCS: 51702; 70450; 71045; 80048; 80053; 81003; 81015; 82550; 82570; 82607; 82728; 82746; 82962; 83010; 83540; 83550; 83605; 83615; 83735; 84100; 84300; 85025; 85027; 85045; 85384; 85610; 85730; 86850; 86900; 86901; 86920; 87040; 87086; 87502; 87811; 93005; 96374; 99291; P9016

== ENCOUNTER 2024-08-01 14:47 | Inpatient (IN) | payer OTHER, SELFPAY ==
--- NOTE | 2024-08-01 14:58 | HPS.HSE ---
Family Physician
-
Family Physician: NOT KNOW UNKNOWN - PT DOES
Chief Complaint
-
YUNG
History of Present Illness
70yo F with PMHX of CKD stage 4, amxiety brought by [facility] due to worsening respomsivemess for past few days. Patient reported to be with poor ambulatory capacity and for the past few days became mostly non-verbal. She was found in urine and feces
in her bed. Admitted with YUNG and UTI with hyponatremia and acidosis. PAtient known to nephrology and previously was adamantly refusing HD. ALso found pancytopenia, that required 1 unit PRBC on admission
As per detailed conversation with - his did not want to use HD and wished just to be comfortable without any significant interventions provided. We have discussed comfort car eand hospice approach - is ready to initiate hospice
and stop all active medications and treatment for the patient, but will want to re-discuss upon arrival to the hospital. He verbalized understanding that this will mean mo tests, blood work, Abx or IVF and that we will manage pain, dyspnea,
agitation with morphine, ativan only. Confirmed bedside with family to initiate comfort care since patient priority was quality of life that steadily deteriorated over past months. Also accepted to inpatient hospice
Medical History
Past Medical History
Past Medical History: Reports Other
Additional Past Medical History:
see HPI
Past Surgical History: Reports Orthopedic
Social History
Tobacco: Former Smoker
Alcohol: Former
Drug: None
Family History
Family History: Not pertinent
Allergies / Home Medications
Allergies reflects when Allergies were last updated in [employer].
Home Medications with original date entered in [employer]
Allergy/Medication List:
Allergies
Allergy/AdvReac Type Severity Reaction Status Date / Time
prednisone Allergy Unknown Verified 07/31/24 13:35
No medications on admission
Review of Systems
-
Unable to obtain full review of systems at this time due to: Patient Non-verbal
A 12 point ROS was completed and negative except as noted: No
Physical Exam
Physical Exam
General: No Apparent Distress
HEENT: NormoCephalic
Respiratory: Clear
Cardiac: S1/S2 and Regular Rhythm; No Murmur
GI: Soft, Non Tender and Non Distended
Genito-urinary: Turbid Urine and Schaefer
Musculoskeletal: No Clubbing, No Cyanosis and No Edema
Skin: Warm; No Jaundice or Ulcers
Neuro: Sedated
Psych: Calm
Data Reviewed
-
Lab Data: Labs Reviewed by me
Impression/Plan
-
A/P:
#UTI with acute septic and metabolic encephalopathy
#YUNG on CKD stage 4 with metabolic acidosis
#Severe hyponatremia
#mild CPKJ elevation
#AST elevation
#Poor ambulatory capacity
#Anxiety d/o
#Pancytopenia
Hospice care
DNR/DNI
DVT ppx NA
I have spent at least 40min reviewing chart, test results and providing direct patient care
--- NOTE | 2024-08-01 15:20 | HOSPNOTE ---
Patient will be admitted to inpatient hospice. Spouse signed consents. Admissions was called and patient will be moving to [facility]. Patient will be seen daily by hospice nurse.
--- NOTE | 2024-08-01 15:35 | TRANSFER ---
Patient transferred to with belongings.
[2024-08-01 15:39] VITALS: BP 134/77
--- NOTE | 2024-08-01 15:52 | CM ---
Reviewed the chart notes. CM continues to be available to patient/family.
Plan: [facility] Hospice.
[2024-08-01 19:20] VITALS: BP 146/73
[2024-08-01] MEDS: MORPHINE SULFATE 1 MG IV ×2 (20:49→22:38)
[2024-08-02] MEDS: MORPHINE SULFATE 1 MG IV ×3 (01:02→22:58)
[2024-08-02 07:45] VITALS: BP 142/81
--- NOTE | 2024-08-02 10:08 | HOSPNOTE ---
SN recieved patient in bed with decent amount of blood on sheets and blanket, patient in bed with eyes closed and bilateral legs hanging over the left side of bed. Further assessment showed patient had pulled cap off iv in left hand. RN notified
immediately along with IV team. RN removed iv from left hand, IV team redressed IVs in right forearm. With assistance of RN, bed bath performed, dressing and linen change. Patient responsive for SN with eyes and some soft spoken words. Patient
appears comfortable after care completed. Emotional support provided. Patient has required PRN morphine x 2 in last 24hrs. SN coordinated with RN, no concerns at this time. Reinforced to call office with any questions or concerns. Expresses
understanding. Update to spouse after visit. Patient remains inpatient appropriate for management of pain and anxiety that is unable to be managed in an outside setting, discharge planning continues.
--- NOTE | 2024-08-02 10:42 | CHAP ---
Addendum entered by Long Booth 08/02/24 11:48:
Provided update to spouse by phone. Offset Printer will continue support through weekly visits, remaining available to family as needed.
Original Note:
Amanda was resting, easily aroused by speaking her name. She denied pain, but showed some agitation at first. No family was present. Amanda welcomed prayer, which calmed her. Emotional and spiritual support provided.
--- NOTE | 2024-08-02 11:38 | W.PN.HOSP.TC ---
Today's Communication/Plan
-
cont hospice care, patient is comfortable
Assessment / Plan
Assessment / Plan
70yo F with PMHX of CKD stage 4, amxiety brought by [facility] due to worsening respomsivemess for past few days. Patient reported to be with poor ambulatory capacity and for the past few days became mostly non-verbal. She was found in urine and feces
in her bed. Admitted with YUNG and UTI with hyponatremia and acidosis. PAtient known to nephrology and previously was adamantly refusing HD. ALso found pancytopenia, that required 1 unit PRBC on admission
As per detailed conversation with - his did not want to use HD and wished just to be comfortable without any significant interventions provided. We have discussed comfort car eand hospice approach - is ready to initiate hospice
and stop all active medications and treatment for the patient, but will want to re-discuss upon arrival to the hospital. He verbalized understanding that this will mean mo tests, blood work, Abx or IVF and that we will manage pain, dyspnea,
agitation with morphine, ativan only. Confirmed bedside with family to initiate comfort care since patient priority was quality of life that steadily deteriorated over past months. accepted to inpatient hospice
A/P:
#UTI with acute septic and metabolic encephalopathy
#YUNG on CKD stage 4 with metabolic acidosis
#Severe hyponatremia
#mild CPKJ elevation
#AST elevation
#Poor ambulatory capacity
#Anxiety d/o
#Pancytopenia
Hospice care
DNR/DNI
DVT ppx NA
I have spent at least 35min reviewing chart, test results and providing direct patient care
Anticipated Discharge: > 48 hours
Subjective/Interval History
-
Date of Service: August 02, 2024
Objective Data
-
Vital Signs:
Vital Signs
Temp Pulse Resp BP Pulse Ox
97.8 F 76 14 142/81 94
08/02/24 07:45 08/02/24 07:45 08/02/24 07:45 08/02/24 07:45 08/02/24 07:45
I&O
08/01/24 08/02/24 08/03/24
06:59 06:59 07:59
Intake Total 0 / 0
Output Total 845 / 845
Balance -845 / -845
Review of Systems
-
History Source: Patient
All other systems: Reviewed and negative
Physical Exam
-
General: No Apparent Distress
Respiratory: Clear to Auscultation
GI: Soft, Nontender and Nondistended
Neuro: Awake and Alert
Psych: Calm
--- NOTE | 2024-08-02 13:00 | PTCARENOTE ---
Pt ate all of her ice cream and 2 sips of milk and 2 bites of her pudding. Pt appears comfortable in her breathing and pain control at this time.
[2024-08-02 19:48] VITALS: BP 129/77
[2024-08-02 19:51] VITALS: BP 129/77
[2024-08-02 23:29] VITALS: BP 129/77
[2024-08-03] MEDS: MORPHINE SULFATE 1 MG IV ×3 (03:17→15:23)
[2024-08-03 07:37] VITALS: BP 124/70
--- NOTE | 2024-08-03 09:25 | W.PN.HOSP.TC ---
Today's Communication/Plan
-
cont hospice care
Assessment / Plan
Assessment / Plan
70yo F with PMHX of CKD stage 4, amxiety brought by [facility] due to worsening respomsivemess for past few days. Patient reported to be with poor ambulatory capacity and for the past few days became mostly non-verbal. She was found in urine and feces
in her bed. Admitted with YUNG and UTI with hyponatremia and acidosis. PAtient known to nephrology and previously was adamantly refusing HD. ALso found pancytopenia, that required 1 unit PRBC on admission
As per detailed conversation with - his did not want to use HD and wished just to be comfortable without any significant interventions provided. We have discussed comfort car eand hospice approach - is ready to initiate hospice
and stop all active medications and treatment for the patient, but will want to re-discuss upon arrival to the hospital. He verbalized understanding that this will mean mo tests, blood work, Abx or IVF and that we will manage pain, dyspnea,
agitation with morphine, ativan only. Confirmed bedside with family to initiate comfort care since patient priority was quality of life that steadily deteriorated over past months. accepted to inpatient hospice
A/P:
#UTI with acute septic and metabolic encephalopathy
#YUNG on CKD stage 4 with metabolic acidosis
#Severe hyponatremia
#mild CPKJ elevation
#AST elevation
#Poor ambulatory capacity
#Anxiety d/o
#Pancytopenia
Hospice care
DNR/DNI
DVT ppx NA
I have spent at least 35min reviewing chart, test results and providing direct patient care
Anticipated Discharge: 24 - 48 hours
Subjective/Interval History
-
Date of Service: August 03, 2024
Objective Data
-
Vital Signs:
Vital Signs
Temp Pulse Resp BP Pulse Ox
97.6 F 69 16 124/70 97
08/03/24 07:37 08/03/24 07:37 08/03/24 07:37 08/03/24 07:37 08/03/24 07:37
I&O
08/02/24 08/03/24 08/04/24
05:59 06:59 06:59
Intake Total
Output Total
Balance
Review of Systems
-
History Source: Patient
All other systems: Reviewed and negative
Physical Exam
-
General: No Apparent Distress and Comfortable
Neuro: Awake, Alert and Oriented
Psych: Calm
[2024-08-03] MEDS: FLUSH (NSS) 2 FLUSH IV ×2 (12:56→15:24)
--- NOTE | 2024-08-03 15:07 | HOSPNOTE ---
Addendum entered by Gina Melendez RN 08/03/24 15:13:
Patient has had 5 doses of Morphine in the last 24 hours. Requested a dose of Morphine at time of visit for right knee pain. Notified patients nurse.
Original Note:
Assessed patient in the bed, asleep. Patient easily awakened, AOX-3. C/o 10/10 pain on right knee, also feels like she cant breathe at times. On 3L NC, RR 20, non labored, dyspneic with exertion. Lungs diminished. Ate breakfast but unable to eat
lunch as she is waiting for top dentures to arrive from home. Placed lunch to the side to be reheated later. Multiple scattered bruises and scabs to upper ext and legs. Schaefer with clear yellow urine. + BS in all 4 quadrants. No family present at
time of visit. to arrive sometime after 4pm. Informal report from TELMA Van. Patient remains GIP for management of symptoms that can not be managed in the outpatient setting. Discharge planning to continue.
[2024-08-03 19:54] VITALS: BP 110/65
[2024-08-04] MEDS: MORPHINE SULFATE 1 MG IV ×2 (03:16→10:56)
[2024-08-04 07:40] VITALS: BP 130/74
--- NOTE | 2024-08-04 08:35 | W.PN.HOSP.TC ---
Today's Communication/Plan
-
Comfort care measures
Assessment / Plan
Assessment / Plan
Physical exam:
General: Acutely ill
HEENT: Normocephalic, Atraumatic
Respiratory: Clear to Auscultation; Negative Wheezes, Rales or Rhonchi
Cardiac: Regular Rhythm and S1/S2
GI: Soft, Nontender and Nondistended
Musculoskeletal: No Clubbing, No Cyanosis and No Edema
Neuro: Awake, Alert and Oriented, generalized weakness
Skin: No rash
Psych: Anxious
A/P:
Goals of care:
Comfort care measures
Morphine as needed
Ativan as needed
Bowel regimen as needed
Add Benadryl as needed as well
Rest of medical problems:
#UTI with acute septic and metabolic encephalopathy
#YUNG on CKD stage 4 with metabolic acidosis
#Severe hyponatremia
#mild CPK elevation
#AST elevation
#Poor ambulatory capacity
#Anxiety d/o
#Pancytopenia
No DVT prophylaxis due to being on comfort care
CODE STATUS DNR
Anticipated Discharge: > 48 hours
Subjective/Interval History
-
Date of Service: August 04, 2024
Patient does complain of pain. Has been been placed on oxygen overnight. Patient complains of itchiness all over her body.
Objective Data
-
Vital Signs:
Vital Signs
Temp Pulse Resp BP Pulse Ox
97.6 F 64 12 130/74 100
08/04/24 07:40 08/04/24 07:40 08/04/24 07:40 08/04/24 07:40 08/04/24 07:40
I&O
08/03/24 08/04/24 08/05/24
06:59 06:59 06:59
Intake Total 800 / 800
Output Total 1200 / 1200
Balance -400 / -400
[2024-08-04] MEDS: BENADRYL 25 MG IV (10:58)
--- NOTE | 2024-08-04 11:46 | HOSPNOTE ---
Patient was medicated with morphine for shortness of breath, oxygen was removed patient had a friend visiting when I arrived. Patient will be seen daily and asked to please medicate for shortness of breath and agitation and pain. Updated floor RN.
--- NOTE | 2024-08-04 12:03 | CM ---
Reviewed the chart notes. CM continues to be available to patient/family.
Plan: GIP hospice.
[2024-08-04] MEDS: ATIVAN 1 MG PO (12:11)
[2024-08-04 22:36] VITALS: BP 124/78
[2024-08-05 07:42] VITALS: BP 115/78
--- NOTE | 2024-08-05 08:29 | W.PN.HOSP.TC ---
Today's Communication/Plan
-
Comfort care measures
Assessment / Plan
Assessment / Plan
Physical exam:
General: Acutely ill
HEENT: Normocephalic, Atraumatic
Respiratory: Clear to Auscultation; Negative Wheezes, Rales or Rhonchi
Cardiac: Regular Rhythm and S1/S2
GI: Soft, Nontender and Nondistended
Musculoskeletal: No Clubbing, No Cyanosis and No Edema
Neuro: Awake, Alert and Oriented, generalized weakness
Skin: No rash
Psych: Anxious
A/P:
Goals of care:
Comfort care measures
Morphine as needed
Ativan as needed
Bowel regimen as needed
Continue Benadryl as needed
Discussed with family at bedside
Discussed with RN
Rest of medical problems:
#UTI with acute septic and metabolic encephalopathy
#YUNG on CKD stage 4 with metabolic acidosis
#Severe hyponatremia
#mild CPK elevation
#AST elevation
#Poor ambulatory capacity
#Anxiety d/o
#Pancytopenia
No DVT prophylaxis due to being on comfort care
CODE STATUS DNR
Anticipated Discharge: > 48 hours
Subjective/Interval History
-
Date of Service: August 05, 2024
Patient alert today. Less itchy
Objective Data
-
Vital Signs:
Vital Signs
Temp Pulse Resp BP Pulse Ox
98.9 F 93 17 115/78 92
08/05/24 07:42 08/05/24 07:42 08/05/24 07:42 08/05/24 07:42 08/05/24 07:42
I&O
08/04/24 08/05/24 08/06/24
06:59 06:59 06:59
Intake Total 800 / 800 240 / 240
Output Total 1200 / 1200 300 / 300 725 / 725
Balance -400 / -400 -60 / -60 -725 / -925
[2024-08-05] MEDS: MORPHINE SULFATE 1 MG IV ×2 (09:19→13:48)
--- NOTE | 2024-08-05 11:14 | CM ---
Reviewed the chart notes. CM continues to be available to patient/family.
Plan: Remains on GIP Hospice
--- NOTE | 2024-08-05 12:19 | HOSPNOTE ---
Patient is on room air does complain of pain and shortness of breath at times. Feels better with IV medications when given. Patient is sleepy today and does state she has pain at time. Please continue to medicate prior to any positioning or care.
Patient will be seen daily by hospice. Patient is inpatient hospice for pain management.
--- NOTE | 2024-08-05 13:10 | HOSPNOTE ---
Spa Assistant Manager visited 74 year old patient to conduct the Initial POULTRY HATCHERY LABORER assessment. Patient recently admitted onto the [facility] Level of Care with a Primary Diagnosis of ESRD. POULTRY HATCHERY LABORER spoke with patient's nurse for updates prior to visiting patient.
Nurse reported medications administered, patient awake and alert and appetite is increased. POULTRY HATCHERY LABORER greeted patient and introduced herself and explained the Aggregate Conveyor Operator role as it pertains to the Hospice Team. Patient was lying in bed watching TV and
taking notes. Patient reported she's unable to speak because she has laryngitis due to her being revived. Patient advised patient to inform the nurse of any symptoms. Patient reported the nurse knows. Patient reported she has been for 30
years and her and Harinder are tight and devoted to each other. Patient reported they met at dinner at their friends home. Patient reported they don't have any children, however, her nephew Milad is her baby and she loves him. Emotional Support
Provided. 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 Patient reported she's a great cook and her favorite dishes are [place]ian chicken corn
chowder and that she makes killer fried green tomatoes. Patient requested for POULTRY HATCHERY LABORER to contact her therapist as she would like to see him. POULTRY HATCHERY LABORER inquired with patient if she asked her to contact the therapist. Patient responded yes, want him to
come me while I'm in the hospital. POULTRY HATCHERY LABORER looked up the therapist and was not able to locate him. POULTRY HATCHERY LABORER will inform patient's nurse to see if could assist with locating him as the patient requested.
Patient reported she's Christianity, and will be cremated. Patient reported Austen Foote in [facility] is the restorationist affiliated. Spouse reported [facility] is his mother's restorationist and spouse has never been there and he's unsure why that was given.
Spouse reported they will utilize [facility] in [place], [place] for cremation arrangements. Emotional Support Provided. Patient reported she has her , nephew and friends for support. Spouse reported he has his family and friends for
support. Bereavement is low as family appears to be coping appropriately. Emotional Support Provided. Patient denies pain and/or distress during this visit. Patient meets [facility] Level of Care for SN assessments, management of pain, dyspnea, and anxiety
that could not be managed at home and/or in an outpatient setting. Discharge planning continues.
POULTRY HATCHERY LABORER will visit with patient weekly while on [facility] Level of Care to provide supportive services and to monitor for additional services and/or supports.
[2024-08-05 19:36] VITALS: BP 144/91
[2024-08-05] MEDS: ATIVAN 1 MG PO (23:44)
[2024-08-06 07:40] VITALS: BP 135/92
--- NOTE | 2024-08-06 08:37 | W.PN.HOSP.TC ---
Today's Communication/Plan
-
Comfort measures
Assessment / Plan
Assessment / Plan
Physical exam:
General: Acutely ill
HEENT: Normocephalic, Atraumatic
Respiratory: Clear to Auscultation; Negative Wheezes, Rales or Rhonchi
Cardiac: Regular Rhythm and S1/S2
GI: Soft, Nontender and Nondistended
Musculoskeletal: No Clubbing, No Cyanosis and No Edema
Neuro: Relatively lethargic, generalized weakness
Skin: No rash
Psych: Anxious
A/P:
Goals of care:
Comfort care measures
Morphine as needed
Ativan as needed
Bowel regimen as needed
Continue Benadryl as needed
Discussed with family at bedside
Discussed with RN
Rest of medical problems:
#UTI with acute septic and metabolic encephalopathy
#YUNG on CKD stage 4 with metabolic acidosis
#Severe hyponatremia
#mild CPK elevation
#AST elevation
#Poor ambulatory capacity
#Anxiety d/o
#Pancytopenia
No DVT prophylaxis due to being on comfort care
CODE STATUS DNR
Anticipated Discharge: 24 - 48 hours
Subjective/Interval History
-
Date of Service: August 06, 2024
Patient a bit more lethargic today but still answer questions appropriately. Appears comfortable
Objective Data
-
Vital Signs:
Vital Signs
Temp Pulse Resp BP Pulse Ox
98.7 F 78 15 135/92 92
08/06/24 07:40 08/06/24 07:40 08/06/24 07:40 08/06/24 07:40 08/06/24 07:40
I&O
08/05/24 08/06/24 08/07/24
06:59 06:59 06:59
Intake Total 240 / 240 950 / 950
Output Total 300 / 300 2049
Balance -60 / -60 -1100 / -1100
--- NOTE | 2024-08-06 09:32 | CM ---
chart reviewed
CM continues to be available to patient/family
PLAN: remains GIP hospice
[2024-08-06] MEDS: MORPHINE SULFATE 1 MG IV ×2 (10:20→21:02)
[2024-08-06] MEDS: BENADRYL 25 MG IV ×2 (10:22→21:02)
--- NOTE | 2024-08-06 10:55 | HOSPNOTE ---
Patient was complaining of pain this am and was medicated with IV morphine with good relief. Patient is a bit more lethargic this am. Encouraged staff to continue medicating when needed especially prior to care. No family present. Patient will be
seen daily by hospice and patient remains inpatient appropriate for pain management.
[2024-08-06 19:30] VITALS: BP 141/82
[2024-08-07] MEDS: ATIVAN 1 MG PO ×3 (04:05→20:15)
[2024-08-07] MEDS: MORPHINE SULFATE 1 MG IV ×5 (04:05→20:15)
[2024-08-07 07:45] VITALS: BP 136/85
[2024-08-07] MEDS: BENADRYL 25 MG IV ×2 (08:33→16:13)
--- NOTE | 2024-08-07 08:37 | W.PN.HOSP.TC ---
Today's Communication/Plan
-
Comfort care measures
Assessment / Plan
Assessment / Plan
Physical exam:
General: Acutely ill
HEENT: Normocephalic, Atraumatic
Respiratory: Clear to Auscultation; Negative Wheezes, Rales or Rhonchi
Cardiac: Regular Rhythm and S1/S2
GI: Soft, Nontender and Nondistended
Musculoskeletal: No Clubbing, No Cyanosis and No Edema
Neuro: Relatively lethargic, generalized weakness
Skin: No rash
Psych: Anxious
A/P:
Goals of care:
Comfort care measures
Morphine as needed
Ativan as needed
Bowel regimen as needed
Continue Benadryl as needed
Discussed with family at bedside
Discussed with RN
Rest of medical problems:
#UTI with acute septic and metabolic encephalopathy
#YUNG on CKD stage 4 with metabolic acidosis
#Severe hyponatremia
#mild CPK elevation
#AST elevation
#Poor ambulatory capacity
#Anxiety d/o
#Pancytopenia
No DVT prophylaxis due to being on comfort care
CODE STATUS DNR
Anticipated Discharge: > 48 hours
Subjective/Interval History
-
Date of Service: August 07, 2024
Patient lethargic but she received some sedative by the time of my evaluation.
Objective Data
-
Vital Signs:
Vital Signs
Temp Pulse Resp BP Pulse Ox
98.2 F 85 15 141/82 91
08/06/24 19:30 08/06/24 19:30 08/06/24 19:30 08/06/24 19:30 08/07/24 02:49
I&O
08/06/24 08/07/24 08/08/24
06:59 06:59 06:59
Intake Total 950 / 950 480 / 480
Output Total 2049 925 / 925
Balance -1100 / -1100 -445 / -445
--- NOTE | 2024-08-07 09:45 | CM ---
Reviewed the chart notes. CM continues to be available to patient/family.
Plan: Remains on GIP Hospice
--- NOTE | 2024-08-07 13:29 | HOSPNOTE ---
Patient was medicated this am prior to care. No family present, patient continues to be inpatient appropriate for pain and anxiety management. Patient will be seen daily.
[2024-08-07 19:58] VITALS: BP 122/76
[2024-08-08] MEDS: MORPHINE SULFATE 1 MG IV ×2 (05:08→11:55)
[2024-08-08] MEDS: BENADRYL 25 MG IV ×2 (05:09→11:55)
[2024-08-08 08:12] VITALS: BP 146/83
--- NOTE | 2024-08-08 09:03 | CM ---
Reviewed the chart notes. CM continues to be available to patient/family.
Plan: Remains on GIP Hospice
--- NOTE | 2024-08-08 09:28 | W.PN.HOSP.TC ---
Today's Communication/Plan
-
Comfort care measures
Assessment / Plan
Assessment / Plan
Physical exam:
General: Acutely ill
HEENT: Normocephalic, Atraumatic
Respiratory: Clear to Auscultation; Negative Wheezes, Rales or Rhonchi
Cardiac: Regular Rhythm and S1/S2
GI: Soft, Nontender and Nondistended
Musculoskeletal: No Clubbing, No Cyanosis and No Edema
Neuro: Relatively lethargic, generalized weakness
Skin: No rash
Psych: Anxious
A/P:
Goals of care:
Comfort care measures
Morphine as needed
Ativan as needed
Bowel regimen as needed
Continue Benadryl as needed
Discussed with family prior
Rest of medical problems:
#UTI with acute septic and metabolic encephalopathy
#YUNG on CKD stage 4 with metabolic acidosis
#Severe hyponatremia
#mild CPK elevation
#AST elevation
#Poor ambulatory capacity
#Anxiety d/o
#Pancytopenia
No DVT prophylaxis due to being on comfort care
CODE STATUS DNR
Anticipated Discharge: > 48 hours
Subjective/Interval History
-
Date of Service: August 08, 2024
Patient alert. More comfortable. Afebrile
Objective Data
-
Vital Signs:
Vital Signs
Temp Pulse Resp BP Pulse Ox
98.1 F 75 17 146/83 96
08/08/24 08:12 08/08/24 08:12 08/08/24 08:12 08/08/24 08:12 08/08/24 08:12
I&O
08/07/24 08/08/24 08/09/24
06:59 06:59 06:59
Intake Total 480 / 480 540 / 540
Output Total 925 / 925 625 / 625
Balance -445 / -445 -
--- NOTE | 2024-08-08 11:13 | HOSPNOTE ---
Patient appears comfortable when I arrived. Sleeping however was medicated. Patient continues to be inpatient appropriate for pain management. Patient will be seen daily by hospice.
[2024-08-08 21:02] VITALS: BP 127/78
[2024-08-09] MEDS: FLUSH (NSS) 2 FLUSH IV (00:02)
[2024-08-09 08:05] VITALS: BP 159/89
--- NOTE | 2024-08-09 08:43 | W.PN.HOSP.TC ---
Today's Communication/Plan
-
Comfort care measures
Assessment / Plan
Assessment / Plan
Physical exam:
General: Acutely ill
HEENT: Normocephalic, Atraumatic
Respiratory: Clear to Auscultation; Negative Wheezes, Rales or Rhonchi
Cardiac: Regular Rhythm and S1/S2
GI: Soft, Nontender and Nondistended
Musculoskeletal: No Clubbing, No Cyanosis and No Edema
Neuro: Alert, disoriented, generalized weakness
Skin: No rash
Psych: Anxious
A/P:
Goals of care:
Comfort care measures
Morphine as needed
Ativan as needed
Bowel regimen as needed
Continue Benadryl as needed
Discussed with family at bedside today
Rest of medical problems:
#UTI with acute septic and metabolic encephalopathy
#YUNG on CKD stage 4 with metabolic acidosis
#Severe hyponatremia
#mild CPK elevation
#AST elevation
#Poor ambulatory capacity
#Anxiety d/o
#Pancytopenia
No DVT prophylaxis due to being on comfort care
CODE STATUS DNR
Anticipated Discharge: > 48 hours
Subjective/Interval History
-
Date of Service: August 09, 2024
Patient is alert but disoriented. Comfortable
Objective Data
-
Vital Signs:
Vital Signs
Temp Pulse Resp BP Pulse Ox
97.9 F 82 16 159/89 93
08/09/24 08:05 08/09/24 08:05 08/09/24 08:05 08/09/24 08:05 08/09/24 08:05
I&O
08/08/24 08/09/24 08/10/24
06:59 06:59 06:59
Intake Total 540 / 540 960 / 960
Output Total 625 / 625 900 / 900
Balance -85 / -85 60 / 60
[2024-08-09] MEDS: MORPHINE SULFATE 1 MG IV ×2 (11:52)
[2024-08-09] MEDS: BENADRYL 25 MG IV (11:52)
[2024-08-09] MEDS: ATIVAN 1 MG PO (11:52)
--- NOTE | 2024-08-09 13:48 | HOSPNOTE ---
Patient assessed in bed, watching TV with mother in law Yani present. Ate very little breakfast. Interested in coffee and fruit. Patient states she feels a little short of breath and neuropathy pain is moderate. Also complaining of itchiness.
Breathing unlabored and pulse ox 94% on RA. Informal conference with nurse Sofya. Patient medicated with Morphine, lorazepam and benadryl with good response. Prior to these doses, Patient had 2 prn morphine, 1 prn benadryl and no lorazepam in the
previous 24 hours. Urinary catheter patent draining clear urine. All questions answered and emotional support provided. Patient requires GIP level of care as her symptoms could not be managed in the home. Discharge planning continues. Vitals 97.9,
82, 16, 159/89.
[2024-08-09 20:17] VITALS: BP 136/81
[2024-08-10] MEDS: ATIVAN 1 MG PO ×3 (01:10→20:02)
[2024-08-10 08:00] VITALS: BP 148/91
--- NOTE | 2024-08-10 08:44 | W.PN.HOSP.TC ---
Today's Communication/Plan
-
Comfort care measures
Assessment / Plan
Assessment / Plan
Physical exam:
General: Acutely ill
HEENT: Normocephalic, Atraumatic
Respiratory: Negative Wheezes, Rales or Rhonchi
Cardiac: Regular Rhythm and S1/S2
GI: Soft, Nontender and Nondistended
Neuro: Alert, oriented, generalized weakness
Psych: Anxious
A/P:
Goals of care:
Comfort care measures
Morphine as needed
Ativan as needed
Bowel regimen as needed
Benadryl as needed
Discussed with photograph mounter at bedside today
Discussed with family at bedside today
Rest of medical problems:
#UTI with acute septic and metabolic encephalopathy
#YUNG on CKD stage 4 with metabolic acidosis
#Severe hyponatremia
#mild CPK elevation
#AST elevation
#Poor ambulatory capacity
#Anxiety d/o
#Pancytopenia
No DVT prophylaxis due to being on comfort care
CODE STATUS DNR
Anticipated Discharge: 24 - 48 hours
Subjective/Interval History
-
Date of Service: August 10, 2024
Alert. Complains of constipation. Poor oral intake.
Objective Data
-
Vital Signs:
Vital Signs
Temp Pulse Resp BP Pulse Ox
98.5 F 81 16 148/91 92
08/10/24 08:00 08/10/24 08:00 08/10/24 08:00 08/10/24 08:00 08/10/24 08:00
I&O
08/09/24 08/10/24 08/11/24
06:59 06:59 06:59
Intake Total 960 / 960 800 / 800
Output Total 900 / 900 850 / 850
Balance 60 / 60 -50 / -50
--- NOTE | 2024-08-10 10:41 | CHAP ---
Amanda was awake and engaged, denied pain and mentioned feeling 'blah, not much appetite.' Mother in law Yani was present. Amanda shared thoughts and feelings about her life, and then welcomed prayer. Ornamental Ironworker provided emotional and spiritual
support through presence, dialogue, life review, and prayer. Will continue support through weekly visits, remaining available to patient and family as needed.
--- NOTE | 2024-08-10 10:57 | HOSPNOTE ---
Patient remains GIP appropriate level of care receiving IV medications for symptom management. In last 24 hours received Morphine x 2, Ativan x 2 and Benadryl x 1. Liquid diet consuming 25 % of meal. Patient confused, forgetful. Concerned about a
phone call doctor appointment with her psychiatrist on Sunday. Discussed that now she is on hospice other physician appointment are cancelled as hospice assumes all care. Patient upset, discussed insurance rules. Patient states she pays out of
pocket for these services. If this is the case she is feel to do a telehealth appointment if her family can assist her to keep appointment. Continue to evaluate for transition to routine level of care hospice if patient stabilizes.
[2024-08-10] MEDS: MORPHINE SULFATE 1 MG IV ×2 (11:14→20:01)
[2024-08-10] MEDS: BENADRYL 25 MG IV ×2 (11:14→20:01)
[2024-08-10] MEDS: DULCOLAX 10 MG RECTAL (12:57)
[2024-08-10 19:49] VITALS: BP 141/95
[2024-08-11] MEDS: BENADRYL 25 MG IV ×2 (03:21→09:34)
[2024-08-11] MEDS: MORPHINE SULFATE 1 MG IV ×3 (03:22→18:28)
[2024-08-11] MEDS: ATIVAN 1 MG PO ×2 (04:04→09:34)
[2024-08-11 07:15] VITALS: BP 129/76
--- NOTE | 2024-08-11 10:43 | HOSPNOTE ---
Patient is very lethargic today, complains of pain and itching and was medicated. Patient continues to be inpatient appropriate for pain and anxiety. Patient will be seen daily.
--- NOTE | 2024-08-11 10:54 | W.PN.HOSP.TC ---
Today's Communication/Plan
-
add benadryl
Assessment / Plan
Assessment / Plan
70yo F with PMHX of CKD stage 4, amxiety brought by [facility] due to worsening respomsivemess for past few days. Patient reported to be with poor ambulatory capacity and for the past few days became mostly non-verbal. She was found in urine and feces
in her bed. Admitted with YUNG and UTI with hyponatremia and acidosis. PAtient known to nephrology and previously was adamantly refusing HD. ALso found pancytopenia, that required 1 unit PRBC on admission
As per detailed conversation with - his did not want to use HD and wished just to be comfortable without any significant interventions provided. We have discussed comfort car eand hospice approach - is ready to initiate hospice
and stop all active medications and treatment for the patient, but will want to re-discuss upon arrival to the hospital. He verbalized understanding that this will mean mo tests, blood work, Abx or IVF and that we will manage pain, dyspnea,
agitation with morphine, ativan only. Confirmed bedside with family to initiate comfort care since patient priority was quality of life that steadily deteriorated over past months. accepted to inpatient hospice
A/P:
#UTI with acute septic and metabolic encephalopathy
#YUNG on CKD stage 4 with metabolic acidosis
#Severe hyponatremia
#mild CPKJ elevation
#AST elevation
#Poor ambulatory capacity
#Anxiety d/o
#Pancytopenia
Hospice care
add benadryl
DNR/DNI
DVT ppx NA
I have spent at least 35min reviewing chart, test results and providing direct patient care
Anticipated Discharge: Within 24 hours
Subjective/Interval History
-
Date of Service: August 11, 2024
Objective Data
-
Vital Signs:
Vital Signs
Temp Pulse Resp BP Pulse Ox
97.7 F 76 16 129/76 93
08/11/24 07:15 08/11/24 07:15 08/11/24 07:15 08/11/24 07:15 08/11/24 07:15
I&O
08/10/24 08/11/24 08/12/24
06:59 06:59 06:59
Intake Total 800 / 800 360 / 360
Output Total 850 / 850 1175 / 1175
Balance -50 / -50 -815 / -815
Review of Systems
-
History Source: Patient
All other systems: Reviewed and negative
Physical Exam
-
General: Comfortable
Respiratory: Clear to Auscultation
Cardiac: Regular Rhythm
Neuro: Awake and Alert
Psych: Calm
--- NOTE | 2024-08-11 12:56 | CM ---
CM reviewed chart
Pt remains on GIP service
CM will continue to be available for dc planning
[2024-08-11] MEDS: BENADRYL 25 MG PO (14:26)
[2024-08-11 19:31] VITALS: BP 135/88
[2024-08-12 08:04] VITALS: BP 117/80
--- NOTE | 2024-08-12 08:55 | HOSPNOTE ---
Risk Specialist visited with 74 year old patient on [facility] Level of Care. Patient was asleep upon HEARING SCREEN COORDINATOR arrival and woke up as HEARING SCREEN COORDINATOR greeted patient. Patient said hi. HEARING SCREEN COORDINATOR asked patient if she remembered HEARING SCREEN COORDINATOR and patient responded, yes you're my Risk Specialist.
HEARING SCREEN COORDINATOR commended patient for remembering her. Patient was lying in bed with the TV on high. Patient turned the TV down to talk to HEARING SCREEN COORDINATOR. HEARING SCREEN COORDINATOR asked patient how she felt and patient responded, bummed out but she's get over. Emotional Support Provided. HEARING SCREEN COORDINATOR
asked patient if she was in pain, patient responded she was but the nurse gave her medication. HEARING SCREEN COORDINATOR observed patient scratching her arms, shoulder and back. HEARING SCREEN COORDINATOR advised patient to inform nurse to apply some cream to avoid a skin tear. HEARING SCREEN COORDINATOR
complemented patient on the beautiful escobar in her room. Patient reported she loves escobar. HEARING SCREEN COORDINATOR asked patient what was favorite flower and patient smiled and responded too many to name. HEARING SCREEN COORDINATOR asked patient who her supports were and patient
responded her , nephew, [id number], and friends. Patient reported her nephew has liver disease and she's worried about him. Emotional Support Provided. HEARING SCREEN COORDINATOR advised patient to discuss her concerns with her and friends to see if they
would be able to assist him. Patient responded her has errands he needs to run for her and that will help. Patient reported she's not hungry but she eats because she has too. Patient reported she sleeps well. Patient began drifting off to
sleep. Patient woke briefly stating she was hungry and can't wait for breakfast. HEARING SCREEN COORDINATOR informed patient breakfast was on the way and she could eat and go back to sleep. Patient smiled and responded yes. Patient did not show signs of pain during this
visit, however signs of distress as it relates to patient scratching. Nurse reported patient asleep on and off. HEARING SCREEN COORDINATOR informed Nurse of patient being bummed out, in and out of sleep, and scratching. Patient meets [facility] Level of Care for SN assessments,
management of pain, dyspnea, and anxiety that could not be managed at home and/or in an outpatient setting. Discharge planning continues.
HEARING SCREEN COORDINATOR will continue to provide supportive services and monitor for additional services once a week while on GIP Level of Care.
[2024-08-12] MEDS: BENADRYL 25 MG PO ×2 (08:59→16:32)
[2024-08-12] MEDS: MORPHINE SULFATE 1 MG IV ×4 (09:20→21:08)
--- NOTE | 2024-08-12 09:34 | CM ---
Reviewed the chart notes. CM continues to be available to patient/family.
Plan: GIP Hospice continues.
--- NOTE | 2024-08-12 10:01 | HOSPNOTE ---
Assessment completed patient continues to be medicated for pain and itching and some anxiety. Patient meets GIP level of care for the above, however hospice SW will start putting referrals out for SNF placement with hospice services. Patient will
need to remain here and unable to go home for psycho/social issues and no caregivers at home. Encouraged staff to medicate prior to any care and repositioning. Hospice will continue to see patient daily.
--- NOTE | 2024-08-12 11:41 | W.PN.HOSP.TC ---
Today's Communication/Plan
-
confirmed to continue hospice care
Assessment / Plan
Assessment / Plan
70yo F with PMHX of CKD stage 4, amxiety brought by [facility] due to worsening respomsivemess for past few days. Patient reported to be with poor ambulatory capacity and for the past few days became mostly non-verbal. She was found in urine and feces
in her bed. Admitted with YUNG and UTI with hyponatremia and acidosis. PAtient known to nephrology and previously was adamantly refusing HD. ALso found pancytopenia, that required 1 unit PRBC on admission
As per detailed conversation with - his did not want to use HD and wished just to be comfortable without any significant interventions provided. We have discussed comfort car eand hospice approach - is ready to initiate hospice
and stop all active medications and treatment for the patient, but will want to re-discuss upon arrival to the hospital. He verbalized understanding that this will mean mo tests, blood work, Abx or IVF and that we will manage pain, dyspnea,
agitation with morphine, ativan only. Confirmed bedside with family to initiate comfort care since patient priority was quality of life that steadily deteriorated over past months. accepted to inpatient hospice
A/P:
#UTI with acute septic and metabolic encephalopathy
#YUNG on CKD stage 4 with metabolic acidosis
#Severe hyponatremia
#mild CPKJ elevation
#AST elevation
#Poor ambulatory capacity
#Anxiety d/o
#Pancytopenia
Hospice care
add benadryl
DNR/DNI
DVT ppx NA
I have spent at least 35min reviewing chart, test results and providing direct patient care
Anticipated Discharge: > 48 hours
Subjective/Interval History
-
Date of Service: August 12, 2024
Objective Data
-
Vital Signs:
Vital Signs
Temp Pulse Resp BP Pulse Ox
98.1 F 78 17 117/80 100
08/12/24 08:04 08/12/24 08:04 08/12/24 08:04 08/12/24 08:04 08/12/24 08:04
I&O
08/11/24 08/12/24 08/13/24
06:59 06:59 06:59
Intake Total 360 / 360 660 / 1040 380 / 380
Output Total 1175 / 1175 300 / 850 550 / 550
Balance -815 / -815 360 / 190 -170 / -170
Review of Systems
-
History Source: Patient
Physical Exam
-
General: No Apparent Distress and Comfortable
Neuro: Awake and Alert
Psych: Calm
[2024-08-12] MEDS: ZOFRAN 4 MG IV (14:25)
[2024-08-12] MEDS: DULCOLAX 10 MG RECTAL (16:41)
[2024-08-12 19:53] VITALS: BP 118/71
[2024-08-12] MEDS: ATIVAN 1 MG PO (21:08)
--- NOTE | 2024-08-13 04:32 | DOWNTIME ---
There was a [employer] Downtime on 08/13/2024 from 0100 to 08/14/2023 at 0420 . Downtime documentation of patient's care, including medication administrations, has been reconciled in the electronic record per guidelines. Refer to the
patient's paper chart under the miscellaneous tab to see printed paper medication records and downtime forms.
[2024-08-13] MEDS: MORPHINE SULFATE 1 MG IV ×4 (04:52→21:43)
[2024-08-13 07:59] VITALS: BP 125/81
[2024-08-13] MEDS: BENADRYL 25 MG IV ×3 (08:37→21:46)
--- NOTE | 2024-08-13 10:56 | W.PN.HOSP.TC ---
Today's Communication/Plan
-
confirmed to continue hospice
Assessment / Plan
Assessment / Plan
70yo F with PMHX of CKD stage 4, amxiety brought by [facility] due to worsening respomsivemess for past few days. Patient reported to be with poor ambulatory capacity and for the past few days became mostly non-verbal. She was found in urine and feces
in her bed. Admitted with YUNG and UTI with hyponatremia and acidosis. PAtient known to nephrology and previously was adamantly refusing HD. ALso found pancytopenia, that required 1 unit PRBC on admission
As per detailed conversation with - his did not want to use HD and wished just to be comfortable without any significant interventions provided. We have discussed comfort car eand hospice approach - is ready to initiate hospice
and stop all active medications and treatment for the patient, but will want to re-discuss upon arrival to the hospital. He verbalized understanding that this will mean mo tests, blood work, Abx or IVF and that we will manage pain, dyspnea,
agitation with morphine, ativan only. Confirmed bedside with family to initiate comfort care since patient priority was quality of life that steadily deteriorated over past months. accepted to inpatient hospice
A/P:
#UTI with acute septic and metabolic encephalopathy
#YUNG on CKD stage 4 with metabolic acidosis
#Severe hyponatremia
#mild CPKJ elevation
#AST elevation
#Poor ambulatory capacity
#Anxiety d/o
#Pancytopenia
Hospice care
add benadryl
DNR/DNI
DVT ppx NA
I have spent at least 35min reviewing chart, test results and providing direct patient care
Anticipated Discharge: > 48 hours
Subjective/Interval History
-
Date of Service: August 13, 2024
Objective Data
-
Vital Signs:
Vital Signs
Temp Pulse Resp BP Pulse Ox
98.3 F 88 16 125/81 95
08/13/24 07:59 08/13/24 07:59 08/13/24 07:59 08/13/24 07:59 08/13/24 07:59
I&O
08/12/24 08/13/24 08/14/24
06:59 06:59 06:59
Intake Total 660 / 1040 920 / 920
Output Total 300 / 850 1200 / 1200
Balance 360 / 190 -280 / -280
Review of Systems
-
All other systems: Reviewed and negative
Physical Exam
-
General: No Apparent Distress and Comfortable
Psych: Calm
--- NOTE | 2024-08-13 12:31 | CM ---
Reviewed the chart notes. CM continues to be available to patient/family.
Plan: GIP Hospice continues.
--- NOTE | 2024-08-13 12:43 | HOSPNOTE ---
Spoke with floor RN, patient was complaining of pain and was medicated with morphine and benadryl (due to itching). Patient is completely bedbound and does require IV medication for pain and ativan for anxiety. Patient continues to be inpatient
appropriate for pain and anxiety. Patient will be seen daily by hospice.
[2024-08-13 19:56] VITALS: BP 139/73
[2024-08-14] MEDS: BENADRYL 25 MG IV ×3 (02:43→20:24)
[2024-08-14] MEDS: ATIVAN 1 MG PO (02:44)
[2024-08-14] MEDS: MORPHINE SULFATE 1 MG IV ×3 (02:44→20:24)
[2024-08-14 07:25] VITALS: BP 134/80
--- NOTE | 2024-08-14 09:31 | PTCARENOTE ---
pt given prn morphine for whole body pain this morning and prn benadryl for itching. per report patient does have a vape within the room and has been using it at the bedside. this RN could not find vape when in the room this morning. pt educated not
to use it during hospital stay by this RN. pt acknowledge information. pt feels like her 'skin is peeling' will reach out to MD about potentional lotion to help with itching to use alongside the benadryl prn.
--- NOTE | 2024-08-14 10:13 | CM ---
Reviewed the chart notes. CM continues to be available to patient/family.
Plan: GIP Hospice continues.
--- NOTE | 2024-08-14 11:36 | W.PN.HOSP.TC ---
Today's Communication/Plan
-
cont hospice care
Assessment / Plan
Assessment / Plan
70yo F with PMHX of CKD stage 4, anxiety brought by due to worsening responsiveness for past few days. Patient reported to be with poor ambulatory capacity and for the past few days became mostly non-verbal. She was found in urine and feces
in her bed. Admitted with YUNG and UTI with hyponatremia and acidosis. PAtient known to nephrology and previously was adamantly refusing HD. Also found pancytopenia, that required 1 unit PRBC on admission
As per detailed conversation with - his did not want to use HD and wished just to be comfortable without any significant interventions provided. We have discussed comfort car eand hospice approach - is ready to initiate hospice
and stop all active medications and treatment for the patient, but will want to re-discuss upon arrival to the hospital. He verbalized understanding that this will mean mo tests, blood work, Abx or IVF and that we will manage pain, dyspnea,
agitation with morphine, ativan only. Confirmed bedside with family to initiate comfort care since patient priority was quality of life that steadily deteriorated over past months. accepted to inpatient hospice.
Patient might be apropriate for outpatient hospice too, however cannot come back home since adultt protection services involved and family has no financial means for SNF with hospice
A/P:
#UTI with acute septic and metabolic encephalopathy
#YUNG on CKD stage 4 with metabolic acidosis
#Severe hyponatremia
#mild CPKJ elevation
#AST elevation
#Poor ambulatory capacity
#Anxiety d/o
#Pancytopenia
Hospice care
add benadryl
DNR/DNI
DVT ppx NA
I have spent at least 35min reviewing chart, test results and providing direct patient care
Anticipated Discharge: > 48 hours
Subjective/Interval History
-
Date of Service: August 14, 2024
Objective Data
-
Vital Signs:
Vital Signs
Temp Pulse Resp BP Pulse Ox
98.5 F 81 16 134/80 93
08/14/24 07:25 08/14/24 07:25 08/14/24 07:25 08/14/24 07:25 08/14/24 07:25
I&O
08/13/24 08/14/24 08/15/24
06:59 06:59 06:59
Intake Total 920 / 920 710 / 710
Output Total 1200 / 1200 600 / 600
Balance -280 / -280 110 / 110
Review of Systems
-
History Source: Patient
All other systems: Reviewed and negative
Physical Exam
-
General: No Apparent Distress
HEENT: Normocephalic
GI: Soft, Nontender and Nondistended
Neuro: Awake, Alert and Oriented
Psych: Calm
--- NOTE | 2024-08-14 14:17 | HOSPNOTE ---
Patient is extremely itchy lotion was ordered, patient continues to be medicated for pain and anxiety. Patient is inpatient appropriate and we are seeking home hospice with 24 hour caregiving. Emotional support provided. Patient will be seen daily.
[2024-08-14] MEDS: CARMOL-10/UREA LOTION 1 APPLIC TOPICAL (20:21)
[2024-08-14 23:42] VITALS: BP 151/88
[2024-08-15 07:04] VITALS: BP 128/79
[2024-08-15] MEDS: MORPHINE SULFATE 1 MG IV ×2 (08:38→13:37)
[2024-08-15] MEDS: BENADRYL 25 MG IV ×2 (08:38→13:38)
[2024-08-15] MEDS: CARMOL-10/UREA LOTION 1 APPLIC TOPICAL ×2 (08:44→21:00)
--- NOTE | 2024-08-15 10:22 | CM ---
Reviewed the chart notes. Order remain GIP hospice.
--- NOTE | 2024-08-15 11:02 | W.PN.HOSP.TC ---
Today's Communication/Plan
-
cont hospice care
Assessment / Plan
Assessment / Plan
70yo F with PMHX of CKD stage 4, anxiety brought by due to worsening responsiveness for past few days. Patient reported to be with poor ambulatory capacity and for the past few days became mostly non-verbal. She was found in urine and feces
in her bed. Admitted with YUNG and UTI with hyponatremia and acidosis. PAtient known to nephrology and previously was adamantly refusing HD. Also found pancytopenia, that required 1 unit PRBC on admission
As per detailed conversation with - his did not want to use HD and wished just to be comfortable without any significant interventions provided. We have discussed comfort car eand hospice approach - is ready to initiate hospice
and stop all active medications and treatment for the patient, but will want to re-discuss upon arrival to the hospital. He verbalized understanding that this will mean mo tests, blood work, Abx or IVF and that we will manage pain, dyspnea,
agitation with morphine, ativan only. Confirmed bedside with family to initiate comfort care since patient priority was quality of life that steadily deteriorated over past months. accepted to inpatient hospice.
Patient might be apropriate for outpatient hospice too, however cannot come back home since adultt protection services involved and family has no financial means for SNF with hospice
A/P:
#UTI with acute septic and metabolic encephalopathy
#YUNG on CKD stage 4 with metabolic acidosis
#Severe hyponatremia
#mild CPKJ elevation
#AST elevation
#Poor ambulatory capacity
#Anxiety d/o
#Pancytopenia
Hospice care
add benadryl
DNR/DNI
DVT ppx NA
I have spent at least 35min reviewing chart, test results and providing direct patient care
Anticipated Discharge: > 48 hours
Subjective/Interval History
-
Date of Service: August 15, 2024
Objective Data
-
Vital Signs:
Vital Signs
Temp Pulse Resp BP Pulse Ox
98.2 F 77 16 128/79 92
08/15/24 07:04 08/15/24 07:04 08/15/24 07:04 08/15/24 07:04 08/15/24 07:04
I&O
08/14/24 08/15/24 08/16/24
06:59 06:59 06:59
Intake Total 710 / 710 780 / 780
Output Total 600 / 600 850 / 850
Balance 110 / 110 -70 / -70
Review of Systems
-
History Source: Patient
All other systems: Reviewed and negative
Physical Exam
-
General: No Apparent Distress and Comfortable
Neuro: Awake and Alert
[2024-08-15] MEDS: ANESTHETIC LOZENGE 1 LOZENGE PO (12:04)
--- NOTE | 2024-08-15 12:28 | HOSPNOTE ---
The patient still complains of pain and is given IV morphine. The plan is a meeting with aids social worker on Sunday to help set up caregivers at home. The patient remains inpatient appropriate for titration of medication for pain management and will be
seen daily by hospice nurse.
[2024-08-15] MEDS: ATIVAN 1 MG PO (13:37)
[2024-08-15 20:29] VITALS: BP 123/75
[2024-08-16] MEDS: ATIVAN 1 MG PO ×4 (02:01→20:21)
[2024-08-16 07:58] VITALS: BP 139/82
[2024-08-16] MEDS: CARMOL-10/UREA LOTION 1 APPLIC TOPICAL ×2 (07:59→20:10)
[2024-08-16] MEDS: ANESTHETIC LOZENGE 1 LOZENGE PO ×3 (08:05→17:21)
[2024-08-16] MEDS: MORPHINE SULFATE 1 MG IV ×3 (08:11→20:19)
--- NOTE | 2024-08-16 11:00 | W.PN.HOSP.TC ---
Addendum entered and electronically signed by Merlin Severino MD 08/16/24 12:59:
Worsening pruritus -add Gabapentin, use morphine
Original Note:
Today's Communication/Plan
-
cont hospice
Assessment / Plan
Assessment / Plan
70yo F with PMHX of CKD stage 4, anxiety brought by due to worsening responsiveness for past few days. Patient reported to be with poor ambulatory capacity and for the past few days became mostly non-verbal. She was found in urine and feces
in her bed. Admitted with YUNG and UTI with hyponatremia and acidosis. PAtient known to nephrology and previously was adamantly refusing HD. Also found pancytopenia, that required 1 unit PRBC on admission
As per detailed conversation with - his did not want to use HD and wished just to be comfortable without any significant interventions provided. We have discussed comfort car eand hospice approach - is ready to initiate hospice
and stop all active medications and treatment for the patient, but will want to re-discuss upon arrival to the hospital. He verbalized understanding that this will mean mo tests, blood work, Abx or IVF and that we will manage pain, dyspnea,
agitation with morphine, Ativan only. Confirmed bedside with family to initiate comfort care since patient priority was quality of life that steadily deteriorated over past months. accepted to inpatient hospice.
Patient might be appropriate for outpatient hospice too, home assessment done by state and is working with hospice on home assistance to take patient home eventually
A/P:
#UTI with acute septic and metabolic encephalopathy
#YUNG on CKD stage 4 with metabolic acidosis
#Severe hyponatremia
#mild CPKJ elevation
#AST elevation
#Poor ambulatory capacity
#Anxiety d/o
#Pancytopenia
Hospice care
add benadryl
DNR/DNI
DVT ppx NA
I have spent at least 35min reviewing chart, test results and providing direct patient care
Anticipated Discharge: > 48 hours
Subjective/Interval History
-
Date of Service: August 16, 2024
Objective Data
-
Vital Signs:
Vital Signs
Temp Pulse Resp BP Pulse Ox
97.8 F 82 16 139/82 95
08/16/24 07:58 08/16/24 07:58 08/16/24 07:58 08/16/24 07:58 08/16/24 07:58
I&O
08/15/24 08/16/24 08/17/24
06:59 06:59 06:59
Intake Total 780 / 780 780 / 780
Output Total 850 / 850 875 / 875
Balance -70 / -70 -95 / -95
Review of Systems
-
History Source: Patient
All other systems: Reviewed and negative
Physical Exam
-
General: No Apparent Distress
HEENT: Normocephalic
Psych: Calm
--- NOTE | 2024-08-16 11:23 | CHAP ---
Amanda was sleeping comfortably, non-responsive, and did not show signs of pain. No family was present. [employer] provided emotional and spiritual support through presence, words of comfort and caring, and prayer. Spoke with spouse, Harinder, by phone
during the visit. He discussed the plan for Amanda to return home. [employer] will continue support through weekly visits while Amanda is GIP, remaining available to patient and family as needed.
--- NOTE | 2024-08-16 12:55 | HOSPNOTE ---
Patient is awake. Presents with pain in legs, generalized pruritus BP 139/84, P 80, T 97.5, RR 16. Received Morphine and Ativan during the visit.
Informal report with floor nurse and attending physician. Patient remains appropriate for GIP level of care for titration for pain management
--- NOTE | 2024-08-16 15:48 | CM ---
Remains GIP hospice
CM remains available to family as needed
Plan - GIP hospice
[2024-08-16 19:36] VITALS: BP 157/94
[2024-08-16] MEDS: FLUSH (NSS) 2 FLUSH IV (20:21)
[2024-08-17 07:40] VITALS: BP 132/80
[2024-08-17] MEDS: BENADRYL 25 MG PO ×2 (08:18→15:28)
[2024-08-17] MEDS: CARMOL-10/UREA LOTION 1 APPLIC TOPICAL ×2 (08:20→20:52)
[2024-08-17] MEDS: ANESTHETIC LOZENGE 1 LOZENGE PO ×3 (08:30→20:55)
--- NOTE | 2024-08-17 09:45 | W.PN.HOSP.TC ---
Today's Communication/Plan
-
cont hospice
Assessment / Plan
Assessment / Plan
70yo F with PMHX of CKD stage 4, anxiety brought by due to worsening responsiveness for past few days. Patient reported to be with poor ambulatory capacity and for the past few days became mostly non-verbal. She was found in urine and feces
in her bed. Admitted with YUNG and UTI with hyponatremia and acidosis. PAtient known to nephrology and previously was adamantly refusing HD. Also found pancytopenia, that required 1 unit PRBC on admission
As per detailed conversation with - his did not want to use HD and wished just to be comfortable without any significant interventions provided. We have discussed comfort car eand hospice approach - is ready to initiate hospice
and stop all active medications and treatment for the patient, but will want to re-discuss upon arrival to the hospital. He verbalized understanding that this will mean mo tests, blood work, Abx or IVF and that we will manage pain, dyspnea,
agitation with morphine, Ativan only. Confirmed bedside with family to initiate comfort care since patient priority was quality of life that steadily deteriorated over past months. accepted to inpatient hospice.
Patient might be appropriate for outpatient hospice too, home assessment done by state and is working with hospice on home assistance to take patient home eventually
A/P:
#UTI with acute septic and metabolic encephalopathy
#YUNG on CKD stage 4 with metabolic acidosis
#Severe hyponatremia
#mild CPKJ elevation
#AST elevation
#Poor ambulatory capacity
#Anxiety d/o
#Pancytopenia
Hospice care
add Benadryl and Gabapentin for itching
DNR/DNI
DVT ppx NA
I have spent at least 35min reviewing chart, test results and providing direct patient care
Anticipated Discharge: > 48 hours
Subjective/Interval History
-
Date of Service: August 17, 2024
Objective Data
-
Vital Signs:
Vital Signs
Temp Pulse Resp BP Pulse Ox
97.9 F 79 18 132/80 94
08/17/24 07:40 08/17/24 07:40 08/17/24 07:40 08/17/24 07:40 08/17/24 07:40
I&O
08/16/24 08/17/24 08/18/24
06:59 06:59 06:59
Intake Total 780 / 780 1200 / 1200
Output Total 875 / 875 625 / 625
Balance -95 / -95 575 / 575
Review of Systems
-
History Source: Patient
All other systems: Reviewed and negative
Physical Exam
-
General: No Apparent Distress and Comfortable
Neuro: Awake and Alert
Psych: Calm
[2024-08-17] MEDS: MORPHINE SULFATE 1 MG IV ×3 (10:55→22:36)
--- NOTE | 2024-08-17 14:29 | HOSPNOTE ---
Patient condition has improved since admission, care planning meeting is scheduled for tomorrow to transition to appropriate LOC. Currently comfortable and well managed. Coordinated care with hospital nurse Carlota, message to MD regarding above.
Encouraged all to call hospice with support needs.
[2024-08-17 19:10] VITALS: BP 152/91
[2024-08-17] MEDS: ZOFRAN 4 MG IV (21:18)
[2024-08-18 08:19] VITALS: BP 144/87
[2024-08-18] MEDS: BENADRYL 25 MG PO ×2 (09:02→15:57)
[2024-08-18] MEDS: CARMOL-10/UREA LOTION 1 APPLIC TOPICAL ×2 (09:08→21:26)
--- NOTE | 2024-08-18 09:29 | W.PN.HOSP.TC ---
Today's Communication/Plan
-
cont comfort care
Arranging home hospice
Assessment / Plan
Assessment / Plan
70yo F with PMHX of CKD stage 4, anxiety brought by due to worsening responsiveness for past few days. Patient reported to be with poor ambulatory capacity and for the past few days became mostly non-verbal. She was found in urine and feces
in her bed. Admitted with YUNG and UTI with hyponatremia and acidosis. PAtient known to nephrology and previously was adamantly refusing HD. Also found pancytopenia, that required 1 unit PRBC on admission
As per detailed conversation with - his did not want to use HD and wished just to be comfortable without any significant interventions provided. We have discussed comfort car eand hospice approach - is ready to initiate hospice
and stop all active medications and treatment for the patient, but will want to re-discuss upon arrival to the hospital. He verbalized understanding that this will mean mo tests, blood work, Abx or IVF and that we will manage pain, dyspnea,
agitation with morphine, Ativan only. Confirmed bedside with family to initiate comfort care since patient priority was quality of life that steadily deteriorated over past months. accepted to inpatient hospice.
Patient might be appropriate for outpatient hospice too, home assessment done by state and is working with hospice on home assistance to take patient home eventually
A/P:
#UTI with acute septic and metabolic encephalopathy
#YUNG on CKD stage 4 with metabolic acidosis
#Severe hyponatremia
#mild CPKJ elevation
#AST elevation
#Poor ambulatory capacity
#Anxiety d/o
#Pancytopenia
Hospice care at home to be arranged. COmfort care to continue
add Benadryl and Gabapentin for itching
DNR/DNI
DVT ppx NA
I have spent at least 35min reviewing chart, test results and providing direct patient care
Anticipated Discharge: > 48 hours
Subjective/Interval History
-
Date of Service: August 18, 2024
Objective Data
-
Vital Signs:
Vital Signs
Temp Pulse Resp BP Pulse Ox
98.2 F 84 16 144/87 92
08/18/24 08:19 08/18/24 08:19 08/18/24 08:19 08/18/24 08:19 08/18/24 08:19
I&O
08/17/24 08/18/24 08/19/24
06:59 06:59 06:59
Intake Total 1200 / 1200 1800 / 1800
Output Total 625 / 625 1000 / 1000
Balance 575 / 575 800 / 800
Review of Systems
-
History Source: Patient
All other systems: Reviewed and negative
Physical Exam
-
General: Comfortable
Genito-urinary: Schaefer
Psych: Calm
--- NOTE | 2024-08-18 09:32 | HOSPNOTE ---
SUPPLIER QUALITY ENGINEER met with 74 year old patient on the [facility] Level of Care to discuss discharge plans. Patient's spouse Harinder was at patient's bedside. SUPPLIER QUALITY ENGINEER greeted Harinder and patient. SUPPLIER QUALITY ENGINEER asked patient if she remembered SUPPLIER QUALITY ENGINEER, patient smiled and said yes. SUPPLIER QUALITY ENGINEER asked
patient how she was doing today and patient responded pretty good. SUPPLIER QUALITY ENGINEER asked patient about her appetite and sleeping habits. Patient reported her appetite is ok, and she sleeps good. Patient denies any pain and discomfort. SUPPLIER QUALITY ENGINEER updated patient on her
status and her discharge options. Patient said no to the Jail Facility. Patient agreed to Jail and 18/12 Caregivers. Patient asked SUPPLIER QUALITY ENGINEER if she would visit patient at home and SUPPLIER QUALITY ENGINEER informed patient visits will be monthly and/or as
needed at home. Spouse reported [facility] has a visit scheduled for this afternoon to assess the home. Spouse will provide SUPPLIER QUALITY ENGINEER with updates after this afternoon's home assessment. Patient was pleasant and in good spirits. Nurse
reported patient's appetite is down, however drinking well and sleeps well. SUPPLIER QUALITY ENGINEER reported discharge plans to Nurse and will provide updates as they are obtained to finalize discharge plan/date. Patient meets [facility] Level of Care for SN assessments,
management of pain, dyspnea, and anxiety that could not be managed in an outpatient setting. Discharge planning continues.
SUPPLIER QUALITY ENGINEER will continue to provide supportive services and monitor for additional services once a week while on [facility] Level of Care.
--- NOTE | 2024-08-18 10:41 | HOSPNOTE ---
Patient currently remains [facility] level of care appropriate with mild improvement and plans to transition to home hospice if stabilization of symptoms continue. Ativan po x 4 on 08/16 but none given 08/17. Benadryl po x 2 in last 24 hours. Zofran x 1 and
Morphine IV x3 in last 24 hours. Temp 98.2, HR 84 RR 16 and BP 144/86. Appetite is fair to good for 2 meals a day, refusing 3rd meal.
[2024-08-18] MEDS: ANESTHETIC LOZENGE 1 LOZENGE PO (12:04)
[2024-08-18] MEDS: MORPHINE SULFATE 1 MG IV ×2 (12:12→21:39)
--- NOTE | 2024-08-18 14:09 | CM ---
Reviewed the chart notes. Per notes, transition to home hospice if stabilization of symptoms continue. CM continues to be available to patient/family and is monitoring medical plan for needs at discharge.
Plan: Currently [facility] hospice.
[2024-08-18] MEDS: SENOKOT-S 1 TABLET PO (14:21)
[2024-08-18] MEDS: DULCOLAX 10 MG RECTAL (14:21)
[2024-08-18 15:40] VITALS: BP 127/80
[2024-08-18 20:01] VITALS: BP 131/83
[2024-08-19 07:40] VITALS: BP 131/89
[2024-08-19] MEDS: CARMOL-10/UREA LOTION 1 APPLIC TOPICAL ×2 (07:59→22:33)
--- NOTE | 2024-08-19 08:45 | W.PN.HOSP.TC ---
Today's Communication/Plan
-
cont inpatient hospice pending home hospice arrangements
Assessment / Plan
Assessment / Plan
70yo F with PMHX of CKD stage 4, anxiety brought by due to worsening responsiveness for past few days. Patient reported to be with poor ambulatory capacity and for the past few days became mostly non-verbal. She was found in urine and feces
in her bed. Admitted with YUNG and UTI with hyponatremia and acidosis. PAtient known to nephrology and previously was adamantly refusing HD. Also found pancytopenia, that required 1 unit PRBC on admission
As per detailed conversation with - his did not want to use HD and wished just to be comfortable without any significant interventions provided. We have discussed comfort car eand hospice approach - is ready to initiate hospice
and stop all active medications and treatment for the patient, but will want to re-discuss upon arrival to the hospital. He verbalized understanding that this will mean mo tests, blood work, Abx or IVF and that we will manage pain, dyspnea,
agitation with morphine, Ativan only. Confirmed bedside with family to initiate comfort care since patient priority was quality of life that steadily deteriorated over past months. accepted to inpatient hospice.
Patient might be appropriate for outpatient hospice too, home assessment done by state and is working with hospice on home assistance to take patient home eventually
A/P:
#UTI with acute septic and metabolic encephalopathy
#YUNG on CKD stage 4 with metabolic acidosis
#Severe hyponatremia
#mild CPKJ elevation
#AST elevation
#Poor ambulatory capacity
#Anxiety d/o
#Pancytopenia
Hospice care at home to be arranged. COmfort care to continue
add Benadryl and Gabapentin for itching
DNR/DNI
DVT ppx NA
I have spent at least 35min reviewing chart, test results and providing direct patient care
Anticipated Discharge: Within 24 hours
Subjective/Interval History
-
Date of Service: August 19, 2024
Objective Data
-
Vital Signs:
Vital Signs
Temp Pulse Resp BP Pulse Ox
98 F 77 16 131/89 95
08/19/24 07:40 08/19/24 07:40 08/19/24 07:40 08/19/24 07:40 08/19/24 07:40
I&O
08/18/24 08/19/24 08/20/24
06:59 06:59 06:59
Intake Total 1800 / 1800 1060 / 1060
Output Total 1000 / 1000 825 / 825
Balance 800 / 800 235 / 235
Review of Systems
-
History Source: Patient
All other systems: Reviewed and negative
Physical Exam
-
General: No Apparent Distress and Comfortable
Neuro: Awake, Alert and Oriented
Psych: Calm
--- NOTE | 2024-08-19 09:59 | HOSPNOTE ---
Patient remains [facility] level of care while planning for transfer to home hospice continues with Harinder. Harinder met with [facility] yesterday afternoon as patient needs 24 hour caregivers to return home. . He states they are calling
us today. Discussed discharge date and equipment needs. Patient will be discharged morning and equipment will be delivered Sunday, as is out of town until late Sunday afternoon. Informed patient she will return home on
. Morphine is still being administered IV with 2 doses in last 24 hours. Benadryl po x 2 also. Will need to convert Morphine to po on Sunday for discharge to home .
Patient will need local fill and address the need for navarro catheter prior to discharge as this was not discussed at this time.
--- NOTE | 2024-08-19 10:20 | CM ---
Addendum entered by Alanna Mcconnell RN 08/19/24 12:12:
Patient will have 24/7 caregivers through [place].
Original Note:
Reviewed the chart notes and spoke with TELMA Almonte. Patient will be discharged on to home on Hospice. Equipment to be delivered on Sunday. Patient resides on the ground of [facility] [employer].
First house on property is patient's home.
[address] [place] [address]
Medical necessity and transport forms on chart. Hospice is requesting 11:00am discharge. Attending updated. [id number] DNR on chart to be signed by attending.
Plan: Discharge to home on Hospice on .
[2024-08-19] MEDS: BENADRYL 25 MG PO (11:13)
[2024-08-19] MEDS: MORPHINE SULFATE 1 MG IV (11:14)
[2024-08-19] MEDS: SENOKOT-S 1 TABLET PO (15:47)
[2024-08-20 02:45] VITALS: BP 142/85
--- NOTE | 2024-08-20 05:16 | PTCARENOTE ---
Patient rested comfortably all night, she did not require any PRN morphine, Ativan or Benadryl. Schaefer draining yellow urine, she had a moderate size BM on bedpan, appetite is fair, call loya within reach.
[2024-08-20 07:40] VITALS: BP 139/87
[2024-08-20] MEDS: CARMOL-10/UREA LOTION 1 APPLIC TOPICAL ×2 (09:31→21:43)
--- NOTE | 2024-08-20 10:01 | CM ---
Reviewed the chart notes. Per [facility] pack worker supervisor, plan now is for home on Sunday with caregivers through [place]. CM continues to be available to patient/family and is monitoring medical plan for needs at discharge.
Plan: Discharge to home on Sunday on [facility] service.
--- NOTE | 2024-08-20 10:22 | W.PN.HOSP.TC ---
Today's Communication/Plan
-
Pending discharge to home hospice
Assessment / Plan
Assessment / Plan
70yo F with PMHX of CKD stage 4, anxiety brought by due to worsening responsiveness for past few days. Patient reported to be with poor ambulatory capacity and for the past few days became mostly non-verbal. She was found in urine and feces
in her bed. Admitted with YUNG and UTI with hyponatremia and acidosis. PAtient known to nephrology and previously was adamantly refusing HD. Also found pancytopenia, that required 1 unit PRBC on admission
As per detailed conversation with - his did not want to use HD and wished just to be comfortable without any significant interventions provided. We have discussed comfort car eand hospice approach - is ready to initiate hospice
and stop all active medications and treatment for the patient, but will want to re-discuss upon arrival to the hospital. He verbalized understanding that this will mean mo tests, blood work, Abx or IVF and that we will manage pain, dyspnea,
agitation with morphine, Ativan only. Confirmed bedside with family to initiate comfort care since patient priority was quality of life that steadily deteriorated over past months. accepted to inpatient hospice.
Patient might be appropriate for outpatient hospice too, home assessment done by state and is working with hospice on home assistance to take patient home eventually
A/P:
#UTI with acute septic and metabolic encephalopathy
#YUNG on CKD stage 4 with metabolic acidosis
#Severe hyponatremia
#mild CPKJ elevation
#AST elevation
#Poor ambulatory capacity
#Anxiety d/o
#Pancytopenia
Hospice care at home to be arranged. COmfort care to continue
add Benadryl and Gabapentin for itching
DNR/DNI
DVT ppx NA
I have spent at least 35min reviewing chart, test results and providing direct patient care
Anticipated Discharge: 24 - 48 hours
Subjective/Interval History
-
Date of Service: August 20, 2024
Objective Data
-
Vital Signs:
Vital Signs
Temp Pulse Resp BP Pulse Ox
98.3 F 87 16 139/87 95
08/20/24 07:40 08/20/24 07:40 08/20/24 07:40 08/20/24 07:40 08/20/24 07:40
I&O
08/19/24 08/20/24 08/21/24
06:59 06:59 06:59
Intake Total 1060 / 1060 1140 / 1140
Output Total 825 / 825 725 / 725
Balance 235 / 235 415 / 415
Review of Systems
-
History Source: Patient
All other systems: Reviewed and negative
Physical Exam
-
General: No Apparent Distress and Comfortable
Neuro: Awake, Alert, Oriented and AO x 3
Psych: Calm
--- NOTE | 2024-08-20 12:20 | HOSPNOTE ---
The plan is for patient to go home on Sunday with hospice services and 24 hour care. Please keep the navarro catheter and we will manage at home. Patient does complain of pain and anxiety at times and is medicated properly. The patient will be
transported via ambulance, spouse is aware of plan. Patient will be seen daily by hospice, please continue to medicate when needed. Attending and CM aware of plan and in agreement.
[2024-08-20] MEDS: MORPHINE SULFATE 1 MG IV (15:11)
[2024-08-21 03:35] VITALS: BP 126/83
[2024-08-21 07:45] VITALS: BP 141/88
[2024-08-21] MEDS: BENTYL 10 MG PO ×2 (07:57→16:55)
[2024-08-21] MEDS: CARMOL-10/UREA LOTION 1 APPLIC TOPICAL ×2 (07:58→21:07)
--- NOTE | 2024-08-21 08:56 | W.PN.HOSP.TC ---
Today's Communication/Plan
-
dc planning
Trial of Bentyl
Assessment / Plan
Assessment / Plan
Physical Exam
General: Chronically ill looking, not in respiratory
HEENT: Normocephalic, Atraumatic, Nose Appears Normal and Ears Appear Normal
Respiratory: Mild rhonchi bilaterally
Cardiac: S1/S2,
GI: Soft, Non Tender, Non Distended and Normal Bowel Sounds; No Organomegaly
Rectal: No bleeding
Genito-urinary: Positive Schaefer, no hematuria
Musculoskeletal: No Clubbing, No Cyanosis, Edema, no left Lower Extremity and Edema, no right Lower Extremity
Skin: No Rash
Neuro: Wake alert x 3, followed commands
Psych: calm, no agitation
70yo F with PMHX of CKD stage 4, anxiety brought by due to worsening responsiveness for past few days. Patient reported to be with poor ambulatory capacity and for the past few days became mostly non-verbal. She was found in urine and feces
in her bed. Admitted with YUNG and UTI with hyponatremia and acidosis. Patient known to nephrology and previously was adamantly refusing HD. Also found pancytopenia, that required 1 unit PRBC on admission
As per detailed conversation with - his did not want to use HD and wished just to be comfortable without any significant interventions provided. We have discussed comfort care and hospice approach - is ready to initiate hospice
and stop all active medications and treatment for the patient. He verbalized understanding that this will mean no tests, blood work, Abx or IVF and that we will manage pain, dyspnea, agitation with morphine, Ativan only. Confirmed bedside with
family to initiate comfort care since patient priority was quality of life that steadily deteriorated over past months. They accepted to inpatient hospice.
Patient might be appropriate for outpatient hospice too, home assessment done by state and is working with hospice on home assistance to take patient home eventually
A/P:
# Abdominal discomfort, no tenderness or swelling on examination. No rebound tenderness, no nausea. Will given Bentyl and monitor, as needed Imodium for diarrhea
#UTI with acute septic and toxic metabolic encephalopathy
#YUNG on CKD stage 4 with metabolic acidosis
#Severe hyponatremia
#mild CPKJ elevation
#AST elevation
#Poor ambulatory capacity
#Anxiety d/o
#Pancytopenia
Hospice care at home to be arranged. Comfort care to continue
add Benadryl and Gabapentin for itching
DNR/DNI
DVT ppx NA
Total time spent to see the patient, examine the patient, review data and lab results, discuss treatment plan with patient and nursing staff around 55 minutes
Anticipated Discharge: Today
Subjective/Interval History
-
Date of Service: August 21, 2024
Complains of infrequent abdominal discomfort, no nausea
Objective Data
-
Vital Signs:
Vital Signs
Temp Pulse Resp BP Pulse Ox
98.4 F 87 20 141/88 95
08/21/24 07:45 08/21/24 07:45 08/21/24 07:45 08/21/24 07:45 08/21/24 07:45
I&O
08/20/24 08/21/24 08/22/24
06:59 06:59 06:59
Intake Total 1140 / 1140 420 / 420
Output Total 725 / 725 275 / 275
Balance 415 / 415 145 / 145
--- NOTE | 2024-08-21 11:05 | CM ---
Reviewed the chart notes. Plan remains home Sunday on Hospice and with 18/12 caregiver by [place]. CM continues to be available to patient/family and is monitoring medical plan for needs at discharge.
Plan: Home with Hospice.
Medical necessity and transport forms on chart.
[2024-08-21] MEDS: BENTYL PO (21:06)
[2024-08-21] MEDS: ATIVAN 1 MG PO (21:06)
[2024-08-21 23:33] VITALS: BP 133/88
[2024-08-22 07:47] VITALS: BP 140/91
--- NOTE | 2024-08-22 09:12 | W.PN.HOSP.TC ---
Today's Communication/Plan
-
dc
Assessment / Plan
Assessment / Plan
Physical Exam
General: Chronically ill looking, not in respiratory
HEENT: Normocephalic, Atraumatic, Nose Appears Normal and Ears Appear Normal
Respiratory: Mild rhonchi bilaterally
Cardiac: S1/S2,
GI: Soft, Non Tender, Non Distended and Normal Bowel Sounds.
Rectal: No bleeding
Genito-urinary: Positive Schaefer, no hematuria
Musculoskeletal: No Clubbing, No Cyanosis, Edema, no left Lower Extremity and Edema, no right Lower Extremity
Skin: No Rash
Neuro: Wake alert x 3, followed commands
Psych: calm, no agitation
70yo F with PMHX of CKD stage 4, anxiety brought by due to worsening responsiveness for past few days. Patient reported to be with poor ambulatory capacity and for the past few days became mostly non-verbal. She was found in urine and feces
in her bed. Admitted with YUNG and UTI with hyponatremia and acidosis. Patient known to nephrology and previously was adamantly refusing HD. Also found pancytopenia, that required 1 unit PRBC on admission
As per detailed conversation with - his did not want to use HD and wished just to be comfortable without any significant interventions provided. We have discussed comfort care and hospice approach - is ready to initiate hospice
and stop all active medications and treatment for the patient. He verbalized understanding that this will mean no tests, blood work, Abx or IVF and that we will manage pain, dyspnea, agitation with morphine, Ativan only. Confirmed bedside with
family to initiate comfort care since patient priority was quality of life that steadily deteriorated over past months. They accepted to inpatient hospice.
Patient might be appropriate for outpatient hospice too, home assessment done by state and is working with hospice on home assistance to take patient home eventually
A/P:
# Abdominal discomfort, no tenderness or swelling on examination. No rebound tenderness, not distended, no nausea. Trial of Bentyl but did not help alot, she would like to try Vicodin( helped before). as needed Imodium for diarrhea
#UTI with acute septic and toxic metabolic encephalopathy
#YUNG on CKD stage 4 with metabolic acidosis
#Severe hyponatremia
#mild CPKJ elevation
#AST elevation
#Poor ambulatory capacity
#Anxiety d/o
#Pancytopenia
Hospice care at home to be arranged. Comfort care to continue
add Benadryl and Gabapentin for itching
DNR/DNI
DVT ppx NA
Total discharge time spent to see the patient, examine the patient, review data and lab results, discuss discharge plan with patient and nursing staff around 65 minutes
Anticipated Discharge: Today
Subjective/Interval History
-
Date of Service: August 22, 2024
She reports Bentyl did not help much, willing to try Vicodin for abdominal discomfort/ aches
Objective Data
-
Vital Signs:
Vital Signs
Temp Pulse Resp BP Pulse Ox
97.8 F 105 16 140/91 95
08/22/24 07:47 08/22/24 07:47 08/22/24 07:47 08/22/24 07:47 08/22/24 07:47
I&O
08/21/24 08/22/24 08/23/24
06:59 06:59 06:59
Intake Total 420 / 420 1020 / 1020
Output Total 275 / 275 550 / 550
Balance 145 / 145 470 / 470
--- NOTE | 2024-08-22 09:33 | CM ---
Addendum entered by Alanna Mcconnell RN 08/22/24 11:07:
IMM reviewed.
Original Note:
Reviewed the chart notes. Patient to be discharged to home today with [facility].
[2024-08-22] MEDS: CARMOL-10/UREA LOTION 1 APPLIC TOPICAL (09:45)
[2024-08-22] MEDS: BENTYL PO (09:46)
[2024-08-22] MEDS: NORCO 5/325 1 TABLET PO (09:58)
--- NOTE | 2024-08-22 14:07 | W.DCSUMMARY ---
Discharge Summary
Discharge Data
Date of Admission: 08/01/24
Date of Discharge: 08/22/24
-
Pending Results: No
Hospital Course
74 years old female with history of chronic kidney disease stage IV, metabolic acidosis admitted to the hospital with failure to thrive, altered mentation. Patient was found to have acute kidney injury, anion gap metabolic acidosis. Patient had
declined hemodialysis in the past. She was also found to have hyponatremia and anemia. Patient was evaluated in the ICU. She was seen by ICU doctor and humanities teacher. Patient received intravenous fluid with sodium bicarbonate, IV antibiotics.
She was found to have progressive renal disease. As per detailed conversation with and to didi patient's wishes, they decided to pursue comfort care/hospice care. Patient was seen by hospice nurse. She was admitted to inpatient hospice,
she received comfort care measures. Patient's mentation improved with supportive care. She was able to communicate and she was lucid and fully oriented. She was agreeable to continue inpatient hospice care and her main goal was to go back home
under hospice care. Hospice service made arrangement for home hospice services. Patient remained hemodynamic stable. She was able to tolerate oral diet. She did not need regular comfort medications or narcotics. Patient was discharged home with
hospice care in a stable condition.
Discharge Plan
-
Patient Disposition: Home with Hospice
Discharge Diagnosis/Procedures: Kidney failure
Diet: As tolerated
Referrals:
UNKNOWN - PT DOES,NOT KNOW [Family Provider] -
Discharge Orders:
Discharge Patient (As Directed); Ordered 08/22/24
Ordered By: Benigno Jain
Discharge Date and Time
Discharge Date/Time: 08/22/24 11:32
Print Language: AUSTR[place]IAN
== END 2024-08-22 11:32 | disposition hospice, home (50) | DRG 871 ==
LOC: 2 NORTH 14:47
PROVIDERS: ADMITTING PHYSICIAN Internal Medicine; ATTENDING PHYSICIAN Internal Medicine
DX: A41.9 Sepsis, unspecified organism (principal); G93.41 Metabolic encephalopathy; N17.9 Acute kidney failure, unspecified; D61.818 Other pancytopenia; E87.1 Hypo-osmolality and hyponatremia; N39.0 Urinary tract infection, site not specified; E87.20 Acidosis, unspecified; N18.4 Chronic kidney disease, stage 4 (severe); F41.9 Anxiety disorder, unspecified; Z66 Do not resuscitate